=== PATIENT | male | born 1940 | race Native Hawaiian/Other Pacific Islander ===

== ENCOUNTER 2018-02-07 10:29 | Inpatient (IN) | payer MEDICARE, OTHER ==
[2018-02-07] MEDS ORDERED: LOPRESSOR IV ONE ×2 (10:46→10:48)
[2018-02-07] MEDS ORDERED: ASPIRIN PO ONE (10:47)
--- NOTE | 2018-02-07 10:50 | Emergency Department Report ---
ED Chest Pain HPI - General Stated Complaint: CHEST PAIN Time Seen by Provider: 02/07/18 10:30 Source: patient, family, EMS Mode of arrival: Stretcher Limitations: No Limitations - History of Present Illness Initial Comments: Patient is a 77-year-old male that presents emergency room with complaints of chest pain or shortness of breath. Patient states his chest pain and shortness of breath started 9:00 this morning. Patient states the chest pain is a 6 out of 10. Patient states it is nonradiating. Patient states chest pain is better with rest and worse with exertion. MD Complaint: chest pain -: Sudden Onset: during rest Pain Location: substernal, left chest Pain Radiation: none Severity: moderate Severity scale (0 -10): 5 Quality: pressure Consistency: constant Improves With: rest Worsens With: exertion re: dyspnea. denies: nausea, vomting, diaphoresis, sense of impending doom Other Symptoms: palpitations. denies: cough, fever, syncope, rash, acid taste in mouth, leg swelling, burping Treatments Prior to Arrival: oxygen Aspirin use within the Past 7 Days: (1) Yes - Related Data On Oral Contraceptives: No Home Medications Medication Instructions Recorded Confirmed Last Taken Aspirin [Adult Aspirin] 81 mg PO DAILY 02/07/18 02/07/18 Unknown Atorvastatin Calcium [Lipitor] 40 mg PO HS 02/07/18 02/07/18 Unknown Finasteride [Proscar] 5 mg PO QAM 02/07/18 02/07/18 Unknown Furosemide [Lasix TAB] 40 mg PO QDAY 02/07/18 02/07/18 Unknown Metoprolol Succinate [Toprol Xl] 100 mg PO BID 02/07/18 02/07/18 Unknown Nitroglycerin [Nitrostat] 0.4 mg SL Q5M PRN 02/07/18 02/07/18 Unknown Potassium Chloride [Klor-Con 10] 10 meq PO DAILY 02/07/18 02/07/18 Unknown Tamsulosin HCl [Flomax] 0.4 mg PO QPM 02/07/18 02/07/18 Unknown Allergies Allergy/AdvReac Type Severity Reaction Status Date / Time No Known Allergies Allergy Verified 02/07/18 10:58 Heart Score - HEART Score History: Moderately suspicious EKG: Significant ST-depression Age: > 65 Risk factors: 1-2 risk factors Troponin: < normal limit HEART Score: 6 ED Review of Systems ROS: Stated complaint: CHEST PAIN Other details as noted in HPI Constitutional: denies: chills, fever Eyes: denies: eye pain, eye discharge, vision change ENT: denies: ear pain, throat pain Respiratory: shortness of breath, SOB with exertion, SOB at rest. denies: cough, wheezing Cardiovascular: chest pain. denies: palpitations Endocrine: no symptoms reported Gastrointestinal: denies: abdominal pain, nausea, diarrhea Genitourinary: denies: urgency, dysuria Musculoskeletal: denies: back pain, joint swelling, arthralgia Skin: denies: rash, lesions Neurological: denies: headache, weakness, paresthesias Psychiatric: denies: anxiety, depression Hematological/Lymphatic: denies: easy bleeding, easy bruising ED Past Medical Hx - Past Medical History Previous Medical History?: Yes Hx Hypertension: Yes Hx Congestive Heart Failure: Yes Hx Renal Disease: Yes Additional medical history: cad with stent - Surgical History Past Surgical History?: Yes Additional Surgical History: aicd/pacer - Family History Family history: no significant - Social History Smoking Status: Never Smoker Substance Use Type: None - Medications Home Medications: Home Medications Medication Instructions Recorded Confirmed Last Taken Type Aspirin [Adult Aspirin] 81 mg PO DAILY 02/07/18 02/07/18 Unknown History Atorvastatin Calcium [Lipitor] 40 mg PO HS 02/07/18 02/07/18 Unknown History Finasteride [Proscar] 5 mg PO QAM 02/07/18 02/07/18 Unknown History Furosemide [Lasix TAB] 40 mg PO QDAY 02/07/18 02/07/18 Unknown History Metoprolol Succinate [Toprol Xl] 100 mg PO BID 02/07/18 02/07/18 Unknown History Nitroglycerin [Nitrostat] 0.4 mg SL Q5M PRN 02/07/18 02/07/18 Unknown History Potassium Chloride [Klor-Con 10] 10 meq PO DAILY 02/07/18 02/07/18 Unknown History Tamsulosin HCl [Flomax] 0.4 mg PO QPM 02/07/18 02/07/18 Unknown History ED Physical Exam - General Limitations: No Limitations General appearance: alert, in no apparent distress - Head Head exam: Present: atraumatic, normocephalic - Eye Eye exam: Present: normal appearance, PERRL Pupils: Present: normal accommodation - ENT ENT exam: Present: mucous membranes dry - Neck Neck exam: Present: normal inspection - Respiratory Respiratory exam: Present: normal lung sounds bilaterally. Absent: respiratory distress - Cardiovascular Cardiovascular Exam: Present: normal rhythm, tachycardia, irregular rhythm. Absent: systolic murmur, diastolic murmur, rubs, gallop - GI/Abdominal GI/Abdominal exam: Present: soft, normal bowel sounds - Rectal Rectal exam: Present: deferred - Extremities Exam Extremities exam: Present: normal inspection - Back Exam Back exam: Present: normal inspection - Neurological Exam Neurological exam: Present: alert, oriented X3 - Psychiatric Psychiatric exam: Present: normal affect, normal mood - Skin Skin exam: Present: warm, dry, intact, normal color. Absent: rash ED Course Vital Signs 02/07/18 02/07/18 02/07/18 10:29 10:57 12:32 Temperature 97.4 F L Pulse Rate 138 H 150 H 140 H Respiratory 22 Rate Blood Pressure 135/84 140/79 Blood Pressure [Right] O2 Sat by Pulse 100 Oximetry 02/07/18 14:17 Temperature 98 F Pulse Rate 83 Respiratory 21 Rate Blood Pressure Blood Pressure 104/77 [Right] O2 Sat by Pulse 100 Oximetry - Reevaluation(s) Reevaluation #1: Evaluated immediately upon arrival by EMS. Patient found to be A. fib RVR. Patient complaining of chest pain shortness of breath. Patient states he ran out of his metoprolol. Patient will be given 5 mg Lopressor. 02/07/18 10:30 Heart rate is improving after Lopressor 02/07/18 10:56 Symptoms have improved. Heart rate has improved 02/07/18 11:38 Heart rate has slowly increased and patient will be given a dose of Cardizem. Discussed all results and plan of care with patient. Patient agrees with plan of care and admission. Patient was admitted to the hospitalist service. 02/07/18 12:24 Heart rate has improved. 02/07/18 13:30 - Consultations Consultation #1: Dr. Mathur consulted for admission. Hospitalist to admit patient 02/07/18 12:00 TR score - Tr Score Age > 65: (1) Yes Aspirin use within the Past 7 Days: (1) Yes 3 or more CAD Risk Factors: (1) Yes 2 or more Angina events in past 24 hrs: (0) No Known CAD with more than 50% Stenosis: (0) No Elevated Cardiac Markers: (0) No ST Deviation Greater than 0.5mm: (0) No TR Score: 3 ED Medical Decision Making - Lab Data Result diagrams: 02/07/18 11:05 02/07/18 11:07 - EKG Data -: EKG Interpreted by Tx EKG shows normal: axis, intervals, QRS complexes, ST-T waves Rate: tachycardia - EKG Data Interpretation: other (afib) - Radiology Data Radiology results: report reviewed AP CHEST :02/07/18 11:18 CLINICAL: Chest pain. COMPARISON:None. FINDINGS: Cardiomegaly with an AICD lead in the heart. Normal pulmonary vessels.Mild right basal patchy opacities. The lungs are otherwise clear. Mild subsegmental atelectasis in the left midlung. The bones and soft tissues are normal. IMPRESSION: Cardiomegaly but no CHF.Possible early right basal pneumonia. Transcribed By: REF Dictated By: MILLIE GARZA MD Electronically Authenticated By: MILLIE GARZA MD Signed Date/Time: 02/07/18 1147 - Medical Decision Making Patient is a 77-year-old male presents emergency with chest pain and shortness of breath. Patient also complained of palpitations. Patient found to be in A. fib RVR. Patient given Lopressor and heart rate responded well. Patient's heart rate slowly increased and patient was given a dose of Cardizem. Patient's labs unremarkable except for her anemia and elevated BNP and abnormal kidney function. Patient was admitted to the hospital service for further evaluation treatment. - Differential Diagnosis cp. sob. bnp. acs. afib rvr. chf Critical Care Time: Yes Critical care attestation.: If time is entered above; I have spent that time in minutes in the direct care of this critically ill patient, excluding procedure time. Critical Care Time: 45 minutes ED Disposition Clinical Impression: SOB (shortness of breath), Atrial fibrillation with RVR Chest pain Qualifiers: Chest pain type: unspecified Qualified Code(s): R07.9 - Chest pain, unspecified CHF exacerbation Qualifiers: Heart failure type: unspecified Qualified Code(s): I50.9 - Heart failure, unspecified Anemia Qualifiers: Anemia type: unspecified type Qualified Code(s): D64.9 - Anemia, unspecified CKD (chronic kidney disease) Qualifiers: Chronic kidney disease stage: unspecified stage Qualified Code(s): N18.9 - Chronic kidney disease, unspecified Disposition: DC-09 OP ADMIT IP TO THIS HOSP Is pt being admited?: Yes Does the pt Need Aspirin: No Condition: Critical Time of Disposition: 12:03
[2018-02-07 11:15] LABS: Hematocrit 24.6 % (35.5-45.6); Hemoglobin 7.4 gm/dl (11.8-15.2); Red Blood Count 3.29 M/mm3 (3.65-5.03)
[2018-02-07 11:16] LABS: Basophils % (Auto) 0.5 % (0.0-1.8); Eosinophils % (Auto) 0.9 % (0.0-4.3); Lymphocytes # (Auto) 1.3 K/mm3 (1.2-5.4); Lymphocytes % (Auto) 24.4 % (13.4-35.0); Mean Corpuscular HGB Conc 30 % (32-34); Mean Corpuscular Volume 75 fl (84-94); Monocytes # (Auto) 0.4 K/mm3 (0.0-0.8); Monocytes % (Auto) 6.8 % (0.0-7.3); Platelet Count 194 K/mm3 (140-440)
[2018-02-07 11:31] LABS: Albumin 3.5 g/dL (3.9-5); Calcium 8.6 mg/dL (8.4-10.2)
--- NOTE | 2018-02-07 11:53 | XRay Report ---
AP CHEST :02/07/18 11:18 CLINICAL: Chest pain. COMPARISON:None. FINDINGS: Cardiomegaly with an AICD lead in the heart. Normal pulmonary vessels.Mild right basal patchy opacities. The lungs are otherwise clear. Mild subsegmental atelectasis in the left midlung. The bones and soft tissues are normal. IMPRESSION: Cardiomegaly but no CHF.Possible early right basal pneumonia.
[2018-02-07] MEDS ORDERED: CARDIZEM IV ONE (12:23)
--- NOTE | 2018-02-07 13:00 | History and Physical Report ---
History of Present Illness Chief complaint: My chest hurts, and i cant breathe History of present illness: 77 YO Male with HTN, HLD, BPH,CHF, CAD S/P Stent placement presents to ED for evaluation. Pt states that he has experienced pain in his chest and difficulty breathing over the past 1 day with worsening symptoms over the past 10 hours. Pt states that pain is 5/10, substernal, crushing in nature, worsened with e xertion, relieved with rest, associated with palpitations, nonradiating. Pt acknowledges decreased exercise tolerance, as well as dypsnea on exertion. Pt seen and evaluated in ED and found to have symptoms consistent with ACS, ARF, as well as Diastolic Heart Failure. Pt also found tohave Atrial Fib with RVR. Pt treated with antiarrythmic therapy resulting in rate control. Pt denies fever, chills, NVD, trauma, prolonged travel/immobility, hemoptysis, skin rash, or recent ill contacts. Pt admitted to telemetry, Cardiology consulted in ED. Past History Past Medical History: CAD, heart failure, hypertension, hyperlipidemia, other (BPH) Past Surgical History: Other (Stent placement, Pacemaker placement;) Social history: , lives with family. denies: smoking, alcohol abuse, prescription drug abuse Family history: CAD, hypertension Medications and Allergies Allergies Allergy/AdvReac Type Severity Reaction Status Date / Time No Known Allergies Allergy Verified 02/07/18 10:58 Home Medications Medication Instructions Recorded Confirmed Last Taken Type Aspirin [Adult Aspirin] 81 mg PO DAILY 02/07/18 02/07/18 Unknown History Atorvastatin Calcium [Lipitor] 40 mg PO HS 02/07/18 02/07/18 Unknown History Finasteride [Proscar] 5 mg PO QAM 02/07/18 02/07/18 Unknown History Furosemide [Lasix TAB] 40 mg PO QDAY 02/07/18 02/07/18 Unknown History Metoprolol Succinate [Toprol Xl] 100 mg PO BID 02/07/18 02/07/18 Unknown History Nitroglycerin [Nitrostat] 0.4 mg SL Q5M PRN 02/07/18 02/07/18 Unknown History Potassium Chloride [Klor-Con 10] 10 meq PO DAILY 02/07/18 02/07/18 Unknown History Tamsulosin HCl [Flomax] 0.4 mg PO QPM 02/07/18 02/07/18 Unknown History Review of Systems Constitutional: no weight loss, no weight gain, no fever, no chills Ears, nose, mouth and throat: no ear pain, no ear discharge, no tinnitis, no decreased hearing, no nose pain Cardiovascular: chest pain, shortness of breath, dyspnea on exertion, decreased exercise tolerance Respiratory: no cough, no cough with sputum, no excessive sputum, no hemoptysis, no shortness of breath Gastrointestinal: no nausea, no vomiting, no diarrhea, no constipation, no change in bowel habits Genitourinary Male: no hematuria, no flank pain, no discharge, no urinary frequency, no urinary hesitancy Rectal: no pain, no incontinence, no bleeding Musculoskeletal: no neck stiffness, no neck pain, no shooting arm pain, no arm numbness/tingling, no low back pain, no shooting leg pain Integumentary: no rash, no pruritis, no wounds, no jaundice Neurological: no head injury, no transient paralysis, no paralysis, no weakness, no numbness, no seizures, no syncope Psychiatric: no anxiety, no memory loss, no sleep disturbances, no hypersomnia Endocrine: no cold intolerance, no heat intolerance, no excessive thirst, no polydipsia, no nocturia Hematologic/Lymphatic: no easy bruising, no easy bleeding, no lymphadenopathy, no lymphedema Allergic/Immunologic: no urticaria, no allergic rhinitis, no persistent infections, no anaphylaxis Exam - Constitutional Vitals: Temp Pulse Resp BP Pulse Ox 97.4 F L 140 H 22 140/79 100 02/07/18 10:29 02/07/18 12:32 02/07/18 10:29 02/07/18 12:32 02/07/18 10:29 General appearance: Present: mild distress - EENT Eyes: Present: PERRL ENT: hearing intact, clear oral mucosa - Neck Neck: Present: supple, normal ROM - Respiratory Respiratory effort: normal Respiratory: bilateral: CTA - Cardiovascular Rhythm: irregularly irregular Heart Sounds: Present: S1 & S2. Absent: rub, click - Extremities Extremities: pulses symmetrical, No edema Peripheral Pulses: within normal limits - Abdominal General gastrointestinal: Present: soft, non-tender, non-distended, normal bowel sounds Male genitourinary: Present: normal - Integumentary Integumentary: Present: clear, warm, dry - Musculoskeletal Musculoskeletal: gait normal, strength equal bilaterally - Psychiatric Psychiatric: appropriate mood/affect, intact judgment & insight - Neurologic Neurologic: CNII-XII intact, moves all extremities Results - Labs CBC & Chem 7: 02/07/18 11:05 02/07/18 11:07 Labs: Abnormal lab results 02/07/18 02/07/18 02/07/18 Range/Units 11:05 11:07 11:07 RBC 3.29 L (3.65-5.03) M/mm3 Hgb 7.4 L (11.8-15.2) gm/dl Hct 24.6 L (35.5-45.6) % MCV 75 L (84-94) fl MCH 23 L (28-32) pg MCHC 30 L (32-34) % RDW 19.0 H (13.2-15.2) % Sodium 133 L (137-145) mmol/L Carbon Dioxide 13 L (22-30) mmol/L BUN 32 H (9-20) mg/dL Creatinine 1.6 H (0.8-1.5) mg/dL Glucose 146 H (75-100) mg/dL Alkaline Phosphatase 133 H (35-129) units/L NT-Pro-B Natriuret Pep 7151 H (0-900) pg/mL Albumin 3.5 L (3.9-5) g/dL Assessment and Plan - Patient Problems (1) CHF exacerbation Current Visit: Yes Status: Acute Qualifiers: Heart failure type: systolic Qualified Code(s): I50.23 - Acute on chronic systolic (congestive) heart failure Plan to address problem: Admit to telemetry, Strict I/O, Monitor UOP q shift, daily weight, chest x ray, diuresis, afterload reduction, cardiology consulted, Echo (2) ARF (acute renal failure) with tubular necrosis Current Visit: Yes Status: Acute Plan to address problem: IVF resuscitation, monitor uop q shift, monitor serum creatnine (3) Anemia Current Visit: Yes Status: Acute Qualifiers: Anemia type: unspecified type Qualified Code(s): D64.9 - Anemia, unspecified Plan to address problem: PRBC transfusion, repeat cbc (4) Atrial fibrillation with RVR Current Visit: Yes Status: Acute Plan to address problem: Admit to telemetry, cardiology consulted, thyroid panel, rate control, supportive care, (5) ACS (acute coronary syndrome) Current Visit: Yes Status: Acute Plan to address problem: serial cardiac enzymes, ekg, telemetry, cardiology consulted in ED, D dimer, (6) DVT prophylaxis Current Visit: Yes Status: Acute Plan to address problem: scd to ble while in bed
[2018-02-07] MEDS ORDERED: NACL 0.9% 500 ML 500 ML IV ONE (13:03)
[2018-02-07] MEDS ORDERED: PROVENTIL IH PRN (13:10)
[2018-02-07] MEDS ORDERED: ZOFRAN IV PRN (13:10)
[2018-02-07] MEDS ORDERED: SODIUM CHLORIDE FLUSH SYRINGE 10 ML IV PRN ×2 (13:10→13:12)
[2018-02-07] MEDS ORDERED: NITROSTAT SL PRN (13:11)
[2018-02-07 14:19] LABS: Chol/HDL Ratio 2.82 %
[2018-02-07] MEDS ORDERED: LASIX ONE (20:26)
[2018-02-07] MEDS: LASIX IV SCH (20:30)
[2018-02-07] MEDS: FLOMAX PO SCH (20:31)
[2018-02-07] MEDS: TOPROL XL PO SCH (21:55)
[2018-02-07] MEDS: SODIUM CHLORIDE FLUSH SYRINGE 10 ML IV SCH (21:56)
[2018-02-08] MEDS: LASIX IV SCH ×2 (06:40→18:26)
[2018-02-08 08:11] LABS: Free T4 (Free Thyroxine) 1.28 ng/dL (0.76-1.46)
[2018-02-08] MEDS ORDERED: NON-FORMULARY (Potassium Chloride [Klor-Con 10] 10 MEQ) PO SCH (10:00)
--- NOTE | 2018-02-08 10:03 | Progress Note ---
Assessment and Plan Assessment and plan: Patient is a 77 you Pakistani speaking man with a history of HTN, HLD, BPH, CHF, Afib with PPM or AICD (Rameshtaisreal Zepeda) and CAD S/P Stent placement who presented to [facility] ED with CP and SOB. He was found to be in afib with RVR, most likely because he ran out of his Metoprolol. He was given IV lopressor which helped but then RVR re-occured and he was given IV Cardizem. Patient is poor historian even with Language Line. * pCXR IMPRESSION: Cardiomegaly but no CHF.Possible early right basal pneumonia. * Hgb 7.4 (MCV 75) * INR 1.74, D-Dimer 605.22 * Cr 1.6 (no baseline, this is his only visit in EMR) * BG 146 (not known to be diabetic) * Initially Troponin 0.025 then 4.390, followed by 3.650 * proBNP 7151 -NSTEMI: already on bb/statin/asa, started IV heparin, closely monitor the anemia, Cardiology following, they are awaiting records from [facility] prior to ischemic evaluation, Dr. Reyes says there is no plans for cardiac cath at the moment. Cr. 1.6 and hemoglobin is low, he wants records from [facility] first. I called RN to have patient sign a release for records. -Acute on Chronic heart failure: Admit to telemetry, Strict I/O, Monitor UOP q shift, daily weight, chest x ray, diuresis, afterload reduction, cardiology consulted, Echo pending -ARF (acute renal failure) with tubular necrosis: IVF resuscitation, monitor uop q shift, monitor serum creatinine, ordered renal u/s -Anemia, microcytic s/p 1 unit prbc, no signs of bleeding: get FOBT, monitor CBC closely, check iron study, thyroid levels are fine, microcytosis indicates this maybe chronic -Atrial fibrillation with RVR: Consulted Cardiology, -Elevated D-Dimer: on iv heparin already but needs further evaluation with V/Q scan instead of CTA chest because cr 1.6, d/w Dr. Reyes, ok for v/q -Possible RLL pneumonia vs interstitial edema: will get 2v CXR: empiric treat with iv rocephin -Elevated INR: I do not know if patient was on Coumadin. MAGGY Doyle will call his phamacy to see if he was on Coumadin/warfarin -Hyperglycemia, not known to be diabetic: check a1c DVT prophylaxis: iv heparin drip full code CCT 35 minutes History Interval history: [employer] Language Line used but I was on hold for >2 minutes waiting on a [employer] Waitress/Waiter Patient was seen and examined. Follow-up on current diagnosis sob and chest pain which has resolved. Overnight uneventful. Patient denies any nausea/vomiting or severe headaches. Imaging, nursing note, chart, labs and old chart reviewed. Discussed with patient. at bedside, doesn't speak Spanish Hospitalist Physical - Physical exam Narrative exam: Gen: thin NAD, Awake, Alert, Orientated HEENT: NCAT, EOMI, PERRL, OP Clear Neck: supple, no adenopathy, no thyromegaly, no JVD CVS/Heart: irregular irregular, normal S1S2, pulses present bilaterally Chest/Lungs: diminished bs right base >left base, Symmetrical chest expansion, good air entry bilaterally, right sided PPM GI/Abdomen: soft, NTND, good bowel sounds, no guarding or rebound /Bladder: no suprapubic tenderness, no CVA or paraspinal tenderness Extermity/Skin: no c/c/e, no obvious rash MSK: FROM x 4 Neuro: CN 2-12 grossly intact, no new focal deficits Psych: calm - Constitutional Vitals: Temp Pulse Resp BP Pulse Ox 98.1 F 87 18 108/61 97 02/08/18 07:58 02/08/18 07:58 02/08/18 07:58 02/08/18 07:58 02/08/18 07:58 General appearance: Absent: mild distress Results - Labs CBC & Chem 7: 02/08/18 10:43 02/07/18 11:07 Labs: Laboratory Last Values WBC 5.5 K/mm3 (4.5-11.0) 02/07/18 11:05 RBC 3.29 M/mm3 (3.65-5.03) L 02/07/18 11:05 Hgb 7.4 gm/dl (11.8-15.2) L 02/07/18 11:05 Hct 24.6 % (35.5-45.6) L 02/07/18 11:05 MCV 75 fl (84-94) L 02/07/18 11:05 MCH 23 pg (28-32) L 02/07/18 11:05 MCHC 30 % (32-34) L 02/07/18 11:05 RDW 19.0 % (13.2-15.2) H 02/07/18 11:05 Plt Count 194 K/mm3 (140-440) 02/07/18 11:05 Lymph % (Auto) 24.4 % (13.4-35.0) 02/07/18 11:05 Swift % (Auto) 6.8 % (0.0-7.3) 02/07/18 11:05 Eos % (Auto) 0.9 % (0.0-4.3) 02/07/18 11:05 Baso % (Auto) 0.5 % (0.0-1.8) 02/07/18 11:05 Lymph # 1.3 K/mm3 (1.2-5.4) 02/07/18 11:05 Swift # 0.4 K/mm3 (0.0-0.8) 02/07/18 11:05 Eos # 0.0 K/mm3 (0.0-0.4) 02/07/18 11:05 Baso # 0.0 K/mm3 (0.0-0.1) 02/07/18 11:05 Seg Neutrophils % 67.4 % (40.0-70.0) 02/07/18 11:05 Seg Neutrophils # 3.7 K/mm3 (1.8-7.7) 02/07/18 11:05 D-Dimer 605.22 ng/mlDDU (0-234) H 02/07/18 13:09 Sodium 133 mmol/L (137-145) L 02/07/18 11:07 Potassium 3.8 mmol/L (3.6-5.0) 02/07/18 11:07 Chloride 100.7 mmol/L (98-107) 02/07/18 11:07 Carbon Dioxide 13 mmol/L (22-30) L 02/07/18 11:07 Anion Gap 23 mmol/L 02/07/18 11:07 BUN 32 mg/dL (9-20) H 02/07/18 11:07 Creatinine 1.6 mg/dL (0.8-1.5) H 02/07/18 11:07 Estimated GFR 42 ml/min 02/07/18 11:07 BUN/Creatinine Ratio 20 % 02/07/18 11:07 Glucose 146 mg/dL (75-100) H 02/07/18 11:07 Calcium 8.6 mg/dL (8.4-10.2) 02/07/18 11:07 Total Bilirubin 0.60 mg/dL (0.1-1.2) 02/07/18 11:07 AST 22 units/L (5-40) 02/07/18 11:07 ALT 7 units/L (7-56) 02/07/18 11:07 Alkaline Phosphatase 133 units/L (35-129) H 02/07/18 11:07 Troponin T 4.390 ng/mL (0.00-0.029) H* D 02/07/18 19:11 NT-Pro-B Natriuret Pep 7151 pg/mL (0-900) H 02/07/18 11:07 Total Protein 7.6 g/dL (6.3-8.2) 02/07/18 11:07 Albumin 3.5 g/dL (3.9-5) L 02/07/18 11:07 Albumin/Globulin Ratio 0.9 % 02/07/18 11:07 Triglycerides 79 mg/dL (2-149) 02/07/18 11:07 Cholesterol 99 mg/dL (50-199) 02/07/18 11:07 LDL Cholesterol Direct 61 mg/dL (50-130) 02/07/18 11:07 HDL Cholesterol 35 mg/dL (40-59) L 02/07/18 11:07 Cholesterol/HDL Ratio 2.82 % 02/07/18 11:07 TSH 2.650 mlU/mL (0.270-4.200) 02/08/18 06:44 Free T4 1.28 ng/dL (0.76-1.46) 02/08/18 06:44 Blood Type A POSITIVE 02/07/18 12:03 Antibody Screen Negative 02/07/18 12:03 Crossmatch See Detail 02/07/18 12:03
[2018-02-08 10:58] LABS: Hematocrit 33.1 % (35.5-45.6); Hemoglobin 10.4 gm/dl (11.8-15.2)
[2018-02-08] MEDS ORDERED: HEPARIN/ 0.45% NACL-25,000 UNIT/500 ML 25,000 UNIT/500 ML BAG IV SCH (11:00)
[2018-02-08 11:10] LABS: INR 1.74 (0.87-1.13)
[2018-02-08 11:11] LABS: Partial Thromboplastin Time 32.2 Sec. (24.2-36.6)
[2018-02-08] MEDS: K-DUR PO SCH (11:17)
[2018-02-08] MEDS: SODIUM CHLORIDE FLUSH SYRINGE 10 ML IV SCH ×2 (11:17→21:27)
[2018-02-08] MEDS: PROSCAR PO SCH (11:17)
[2018-02-08] MEDS: HALFPRIN EC PO SCH (11:17)
[2018-02-08] MEDS: TOPROL XL PO SCH ×2 (11:18→21:11)
[2018-02-08 12:31] LABS: Creatine Kinase MB 22.5 ng/mL (0.0-4.0)
--- NOTE | 2018-02-08 16:06 | Consultation ---
Addendum entered and electronically signed by JUANJO PÉREZ MD 02/08/18 16:48: We note the elevation of the cardiac isoenzymes, which could represent an ischem ic event, but could also represent the rapid tachycardia of the presenting atrial fibrillation. We will obtain the patient's records from [facility], to determine the etiology of his cardiomyopathy, and may guide further ischemic workup. It would prudent to use IV anticoagulation judiciously given the patient's presentation with anemia requiring blood transfusion. Addendum entered and electronically signed by JUANJO PÉREZ MD 02/08/18 16:34: The patient is a 77-year-old man who speaks little Algerian, and is a very poor historian. He was brought to the emergency room by the EMS, with complaints of chest pressure, palpitations and shortness of breath. supplier diversity director found him with a rapid atrial fibrillation. In addition, on presentation to the hospital he was found to be anemic with a hematocrit of 24, and he was given a blood tr ansfusion. The patient is unable to articulate his prior cardiac history, or give a proper report of his home medications. His INR was 1.74 on presentation, but we are on able to confirm that he is on warfarin. In addition, we cannot confirm the chronicity of his atrial fibrillation, and possible medical therapy targeted to his atrial fibrillation. On review of his chest x-ray, there is massive cardiomegaly, mild interstitial edema with decompensated heart failure. Also most significantly, there is an in situ cardiac defibrillator. Recommendations: Patient is a poor historian, but evidence on studies show an underlying cardiomyopathy, indwelling cardiac defibrillator, and probable long-standing atrial fibrillation. On the chest x-ray there is evidence of interstitial edema or decompensated heart failure. In addition to atrial fibrillation rate control, we will treat heart failure with optimal diuretics, afterload agents, and beta blockers once heart failure is compensated. With regards to oral anticoagulation for his atrial fibrillation, resumption of anticoagulation will depend on risk assessment with respect to his presentation anemia. We will request his medical records from [facility]. Original Note: History of Present Illness Consult date: 02/08/18 Consult reason: atrial fibrillation, congestive heart failure History of present illness: This is a 77 year old male who speaks no Algerian. He was brought in with rapid atrial fibrillation. It is reported the patient ran out of his metoprolol. He was treated with intravenous Diltiazem but remains in atrial fibrillation. Rate is now controlled. Family member at bedside, used for translation, reports the patient has a history of atrial fibrillation and follows with a potato peeler at [facility]. It is unclear at this time if the patient is on oral anticoagulation. He has an INR of 1.74. TSH is normal. In addition, patient noted with multiple metabolic abnormalities that includes severe anemia, hematocrit of 24.6 and acute renal failure with a creatinine of 1.6. He has elevated cardiac enzymes suggestive of NSTEMI: CK/MB 22.5 with a relative index at 5.3. Troponin at 3.6. Past History Past Medical History: CAD, heart failure, hypertension, hyperlipidemia, other (BPH) Past Surgical History: Other (Stent placement, Pacemaker placement;) Social history: , lives with family. denies: smoking, alcohol abuse, prescription drug abuse Family history: CAD, hypertension Medications and Allergies Allergies Allergy/AdvReac Type Severity Reaction Status Date / Time No Known Allergies Allergy Verified 02/07/18 10:58 Home Medications Medication Instructions Recorded Confirmed Last Taken Type Aspirin [Adult Aspirin] 81 mg PO DAILY 02/07/18 02/07/18 Unknown History Atorvastatin Calcium [Lipitor] 40 mg PO HS 02/07/18 02/07/18 Unknown History Finasteride [Proscar] 5 mg PO QAM 02/07/18 02/07/18 Unknown History Furosemide [Lasix TAB] 40 mg PO QDAY 02/07/18 02/07/18 Unknown History Metoprolol Succinate [Toprol Xl] 100 mg PO BID 02/07/18 02/07/18 Unknown History Nitroglycerin [Nitrostat] 0.4 mg SL Q5M PRN 02/07/18 02/07/18 Unknown History Potassium Chloride [Klor-Con 10] 10 meq PO DAILY 02/07/18 02/07/18 Unknown History Tamsulosin HCl [Flomax] 0.4 mg PO QPM 02/07/18 02/07/18 Unknown History Active Meds: Active Medications Acetaminophen (Tylenol) 650 mg PO Q4H PRN PRN Reason: Pain MILD(1-3)/Fever >100.5/COLÓN Albuterol (Proventil) 2.5 mg IH Q4HRT PRN PRN Reason: Shortness Of Breath Aspirin (Halfprin Ec) 81 mg PO DAILY [facility] Last Admin: 02/08/18 11:17 Dose: Not Given Documented by: Atorvastatin Calcium (Lipitor) 40 mg PO HS [facility] Last Admin: 02/07/18 21:55 Dose: 40 mg Documented by: Finasteride (Proscar) 5 mg PO QAM [facility] Last Admin: 02/08/18 11:17 Dose: Not Given Documented by: Furosemide (Lasix) 20 mg IV BID@0600,1800 [facility] Last Admin: 02/08/18 06:40 Dose: 20 mg Documented by: Heparin Sodium/Sodium Chloride (Heparin/ 0.45% Nacl-25,000 Unit/500 Ml) 25,000 unit in 500 mls @ 18 mls/hr IV TITRATE [facility]; Protocol Last Admin: 02/08/18 12:37 Dose: 900 units/hr, 18 mls/hr Documented by: Metoprolol Succinate (Toprol Xl) 100 mg PO BID [facility] Last Admin: 02/08/18 11:18 Dose: Not Given Documented by: Nitroglycerin (Nitrostat) 0.4 mg SL Q5M PRN PRN Reason: Chest Pain Ondansetron HCl (Zofran) 4 mg IV Q8H PRN PRN Reason: Nausea And Vomiting Potassium Chloride (K-Dur) 10 meq PO QDAY [facility] Last Admin: 02/08/18 11:17 Dose: Not Given Documented by: Sodium Chloride (Sodium Chloride Flush Syringe 10 Ml) 10 ml IV BID [facility] Last Admin: 02/08/18 11:17 Dose: Not Given Documented by: Sodium Chloride (Sodium Chloride Flush Syringe 10 Ml) 10 ml IV PRN PRN PRN Reason: LINE FLUSH Sodium Chloride (Sodium Chloride Flush Syringe 10 Ml) 10 ml IV PRN PRN PRN Reason: LINE FLUSH Tamsulosin HCl (Flomax) 0.4 mg PO QPM [facility] Last Admin: 02/07/18 20:31 Dose: 0.4 mg Documented by: Physical Examination Vital Signs Temp Pulse Resp BP Pulse Ox 97.4 F L 138 H 22 135/84 100 02/07/18 10:29 02/07/18 10:29 02/07/18 10:29 02/07/18 10:29 02/07/18 10:29 Results 02/08/18 10:43 02/07/18 11:07 Cardiac Enzymes 02/08/18 Range/Units 11:37 CK-MB (CK-2) 22.5 H (0.0-4.0) ng/mL Coagulation 02/08/18 Range/Units 10:43 PT 20.8 H (12.2-14.9) Sec. INR 1.74 H (0.87-1.13) APTT 32.2 (24.2-36.6) Sec. CBC 02/08/18 Range/Units 10:43 Hgb 10.4 L D (11.8-15.2) gm/dl Hct 33.1 L D (35.5-45.6) % Plt Count 188 (140-440) K/mm3
[2018-02-08] MEDS: COZAAR PO SCH (18:25)
[2018-02-08] MEDS: FLOMAX PO SCH (18:25)
[2018-02-08] MEDS: ZITHROMAX 500 MG in NACL 0.9% 250ML 250 ML IV SCH (19:18)
[2018-02-08 19:19] LABS: Creatine Kinase MB 15.1 ng/mL (0.0-4.0)
[2018-02-08 19:22] LABS: Iron 34 ug/dL (49-181); Total Iron Binding Capacity 406 mcg/dL (250-450)
[2018-02-08] MEDS: ROCEPHIN/NS 1 GM/50 ML 1 GM/50 ML BAG IV SCH (20:46)
[2018-02-09 05:22] LABS: Hematocrit 31.7 % (35.5-45.6); Hemoglobin 10.2 gm/dl (11.8-15.2); Mean Corpuscular HGB Conc 32 % (32-34); Mean Corpuscular Volume 77 fl (84-94); Platelet Count 178 K/mm3 (140-440); Red Blood Count 4.13 M/mm3 (3.65-5.03)
[2018-02-09 05:24] LABS: Red Cell Distribution Width 22.6 % (13.2-15.2)
[2018-02-09 05:45] LABS: Calcium 8.7 mg/dL (8.4-10.2)
--- NOTE | 2018-02-09 10:25 | Nuclear Medicine Report ---
LUNG SCAN, VENTILATION AND PERFUSION: History: Pulmonary embolus, chest pain, shortness of breath. Technique: 5mci of Tc99m MAA was infused for the perfusion images. 15mci XE 133 gas was inhaled for the ventilatory images. Correlation is made with a chest x-ray dated 02/09/18. Findings: Inhalation of Xenon gas demonstrates a normal distribution of the activity throughout both lungs. The wash out phases show no focal retention of activity. After injection of Technetium 99m macroaggregated albumin gamma camera imaging of the lungs in multiple projections demonstrates normal pulmonary contours with a homogeneous distribution of activity. No focal areas of perfusion deficiency are identified. IMPRESSION: Low probability for pulmonary embolus.
--- NOTE | 2018-02-09 10:26 | XRay Report ---
AP CHEST: HISTORY: chest pain Mild cardiomegaly is noted. The pulmonary vessels are borderline. No evidence for infiltrate, pleural effusion or pneumothorax. Single lead cardiac device remains in good position. IMPRESSION: Mild cardiomegaly. Lungs clear.
[2018-02-09] MEDS: TOPROL XL PO SCH ×2 (11:27→11:52)
[2018-02-09] MEDS: PROSCAR PO SCH (11:27)
[2018-02-09] MEDS: HALFPRIN EC PO SCH (11:27)
[2018-02-09] MEDS: COZAAR PO SCH (11:28)
[2018-02-09] MEDS: LASIX IV SCH (11:28)
[2018-02-09] MEDS: ROCEPHIN/NS 1 GM/50 ML 1 GM/50 ML BAG IV SCH (11:28)
[2018-02-09] MEDS: K-DUR PO SCH (11:28)
[2018-02-09] MEDS: SODIUM CHLORIDE FLUSH SYRINGE 10 ML IV SCH ×2 (11:29→21:57)
--- NOTE | 2018-02-09 13:18 | Progress Note ---
Assessment and Plan Persistent atrial fibrillation, unknown chronicity rate controlled INR 1.74 on presentation. Unable to confirm if he is on warfarin. Anemia s/p blood transfusion Decompensated heart failure, diastolic EF 55% by echocardiogram Presence of AICD Awaiting the patient's records from [facility], to determine the etiology of his cardiomyopathy and guide of further ischemic workup. Use IV anticoagulation judiciously given the patient's presentation with anemia requiring blood transfusion. Subjective Date of service: 02/09/18 Interval history: Patient does not speak Luxembourgish. Awaiting cardiac records for [facility] for review. Stable Afib on tele. Objective Vital Signs Temp Pulse Resp BP Pulse Ox 02/09/18 12:13 98.3 F 93 H 16 92/51 97 02/09/18 10:58 98 02/09/18 08:27 98.5 F 81 18 93/51 97 02/09/18 03:32 97.9 F 78 16 95/55 98 02/08/18 23:50 97.6 F 76 16 80/42 96 02/08/18 21:50 18 02/08/18 21:39 97.3 F L 83 18 97/50 97 02/08/18 20:15 76 02/08/18 20:13 98.2 F 76 18 83/55 98 02/08/18 18:12 97.9 F 78 18 121/65 100 - Physical Examination General: No Apparent Distress HEENT: Positive: PERRL Cardiac: Positive: irregularly irregular Neuro: Positive: Grossly Intact Extremities: Absent: edema - Labs and Meds Cardiac Enzymes 02/08/18 Range/Units 17:47 CK-MB (CK-2) 15.1 H (0.0-4.0) ng/mL CBC 02/09/18 Range/Units 04:49 WBC 3.7 L (4.5-11.0) K/mm3 RBC 4.13 (3.65-5.03) M/mm3 Hgb 10.2 L (11.8-15.2) gm/dl Hct 31.7 L (35.5-45.6) % Plt Count 178 (140-440) K/mm3 Comprehensive Metabolic Panel 02/09/18 Range/Units 04:49 Sodium 140 D (137-145) mmol/L Potassium 3.7 (3.6-5.0) mmol/L Chloride 103.2 (98-107) mmol/L Carbon Dioxide 21 L D (22-30) mmol/L BUN 30 H (9-20) mg/dL Creatinine 1.8 H (0.8-1.5) mg/dL Glucose 76 (75-100) mg/dL Calcium 8.7 (8.4-10.2) mg/dL
--- NOTE | 2018-02-09 15:52 | Progress Note ---
Assessment and Plan Assessment and plan: Patient is a 77 you Welsh speaking man with a history of HTN, HLD, BPH, CHF, Afib with PPM or AICD (Nancy Zepeda) and CAD S/P Stent placement who presented to [facility] ED with CP and SOB. He was found to be in afib with RVR, most likely because he ran out of his Metoprolol. He was given IV lopressor which helped but then RVR re-occured and he was given IV Cardizem. Radha Dykes was the environmental health specialist. (Daniel Quintero: patient is on Eliquis 5mg bid and he is on lasix 20mg once a day instead of 40mg listed on med recon. All the other home med reconcilation list are correct. last filled Eliquis jan 16 2018) * pCXR IMPRESSION: Cardiomegaly but no CHF.Possible early right basal pneumonia. * Hgb 7.4 (MCV 75) * INR 1.74, D-Dimer 605.22 * Cr 1.6 (no baseline, this is his only visit in EMR) * BG 146 (not known to be diabetic) * Initially Troponin 0.025 then 4.390, followed by 3.650 * proBNP 7151 -NSTEMI: already on bb/statin/asa, started IV heparin >24hours, will stop considering Cardiology concern for the anemia, Cardiology following, they are awaiting records from [facility] prior to ischemic evaluation, Dr. Reyes says there is no plans for cardiac cath at the moment. Cr. 1.6 and hemoglobin is low, he wants records from [facility] first. I called RN to have patient sign a release for records. Cardiology still waiting to review [facility] records. -Acute on Chronic diastolic heart failure: Admit to telemetry, Strict I/O, Monitor UOP q shift, daily weight, chest x ray, diuresis, afterload reduction, cardiology consulted, Echo reviewed -ARF (acute renal failure) with tubular necrosis: Renal function worsening, will consult Nephrology, renal u/s pending -Anemia, microcytic s/p 1 unit prbc, no signs of bleeding: follow up FOBT, iron study, and ferritin -Atrial fibrillation with RVR: Consulted Cardiology, restart home Eliquis -Elevated D-Dimer: V/Q scan low probability with low suspicion -Possible RLL pneumonia vs interstitial edema: empiric treated with iv rocephin/azithromysin==>lungs are clear on repeat CXR, will stop abx -Elevated INR on Eliquis -Hyperglycemia, not known to be diabetic: check a1c==>6.2, start SSI DVT prophylaxis: scd full code History Interval history: [employer] [place] [employer] used but I was on hold for >2 minutes waiting on a Product Managent Intern Patient was seen and examined. Follow-up on current diagnosis sob and chest pain which has resolved. Overnight uneventful. Patient denies any nausea/vomiting or severe headaches. Imaging, nursing note, chart, labs and old chart reviewed. Discussed with patient. at bedside, doesn't speak Citizen [place] Hospitalist Physical - Physical exam Narrative exam: Gen: thin NAD, Awake, Alert, Orientated HEENT: NCAT, EOMI, PERRL, OP Clear Neck: supple, no adenopathy, no thyromegaly, no JVD CVS/Heart: irregular irregular, normal S1S2, pulses present bilaterally Chest/Lungs: diminished bs right base >left base, Symmetrical chest expansion, good air entry bilaterally, right sided PPM GI/Abdomen: soft, NTND, good bowel sounds, no guarding or rebound /Bladder: no suprapubic tenderness, no CVA or paraspinal tenderness Extermity/Skin: no c/c/e, no obvious rash MSK: FROM x 4 Neuro: CN 2-12 grossly intact, no new focal deficits Psych: calm - Constitutional Vitals: Temp Pulse Resp BP Pulse Ox 98.3 F 93 H 16 92/51 97 02/09/18 12:13 02/09/18 12:13 02/09/18 12:13 02/09/18 12:13 02/09/18 12:13 General appearance: Absent: mild distress Results - Labs CBC & Chem 7: 02/09/18 04:49 02/09/18 04:49 Labs: Laboratory Last Values WBC 3.7 K/mm3 (4.5-11.0) L 02/09/18 04:49 RBC 4.13 M/mm3 (3.65-5.03) 02/09/18 04:49 Hgb 10.2 gm/dl (11.8-15.2) L 02/09/18 04:49 Hct 31.7 % (35.5-45.6) L 02/09/18 04:49 MCV 77 fl (84-94) L 02/09/18 04:49 MCH 25 pg (28-32) L 02/09/18 04:49 MCHC 32 % (32-34) 02/09/18 04:49 RDW 22.6 % (13.2-15.2) H 02/09/18 04:49 Plt Count 178 K/mm3 (140-440) 02/09/18 04:49 Lymph % (Auto) 24.4 % (13.4-35.0) 02/07/18 11:05 [place] % (Auto) 6.8 % (0.0-7.3) 02/07/18 11:05 Eos % (Auto) 0.9 % (0.0-4.3) 02/07/18 11:05 Baso % (Auto) 0.5 % (0.0-1.8) 02/07/18 11:05 Lymph # 1.3 K/mm3 (1.2-5.4) 02/07/18 11:05 [place] # 0.4 K/mm3 (0.0-0.8) 02/07/18 11:05 Eos # 0.0 K/mm3 (0.0-0.4) 02/07/18 11:05 Baso # 0.0 K/mm3 (0.0-0.1) 02/07/18 11:05 Seg Neutrophils % 67.4 % (40.0-70.0) 02/07/18 11:05 Seg Neutrophils # 3.7 K/mm3 (1.8-7.7) 02/07/18 11:05 PT 20.8 Sec. (12.2-14.9) H 02/08/18 10:43 INR 1.74 (0.87-1.13) H 02/08/18 10:43 APTT 32.2 Sec. (24.2-36.6) 02/08/18 10:43 D-Dimer 605.22 ng/mlDDU (0-234) H 02/07/18 13:09 Heparin Anti-Xa Level 2.00 U.I./ml (0.3-0.7) H 02/09/18 04:49 Sodium 140 mmol/L (137-145) D 02/09/18 04:49 Potassium 3.7 mmol/L (3.6-5.0) 02/09/18 04:49 Chloride 103.2 mmol/L (98-107) 02/09/18 04:49 Carbon Dioxide 21 mmol/L (22-30) L D 02/09/18 04:49 Anion Gap 20 mmol/L 02/09/18 04:49 BUN 30 mg/dL (9-20) H 02/09/18 04:49 Creatinine 1.8 mg/dL (0.8-1.5) H 02/09/18 04:49 Estimated GFR 37 ml/min 02/09/18 04:49 BUN/Creatinine Ratio 17 % 02/09/18 04:49 Glucose 76 mg/dL (75-100) 02/09/18 04:49 Hemoglobin A1c 6.2 % (4-6) H 02/09/18 04:49 Calcium 8.7 mg/dL (8.4-10.2) 02/09/18 04:49 Magnesium 2.00 mg/dL (1.7-2.3) 02/09/18 04:49 Iron 34 ug/dL (49-181) L 02/08/18 17:51 TIBC 406 mcg/dL (250-450) 02/08/18 17:51 Ferritin 23.1 ng/mL (13.0-400.0) 02/08/18 17:51 Total Bilirubin 0.60 mg/dL (0.1-1.2) 02/07/18 11:07 AST 22 units/L (5-40) 02/07/18 11:07 ALT 7 units/L (7-56) 02/07/18 11:07 Alkaline Phosphatase 133 units/L (35-129) H 02/07/18 11:07 Total Creatine Kinase 384 units/L (55-170) H 02/08/18 17:47 CK-MB (CK-2) 15.1 ng/mL (0.0-4.0) H 02/08/18 17:47 CK-MB (CK-2) Rel Index 3.9 (0-4) 02/08/18 17:47 Troponin T 2.350 ng/mL (0.00-0.029) H* D 02/08/18 17:47 NT-Pro-B Natriuret Pep 7151 pg/mL (0-900) H 02/07/18 11:07 Total Protein 7.6 g/dL (6.3-8.2) 02/07/18 11:07 Albumin 3.5 g/dL (3.9-5) L 02/07/18 11:07 Albumin/Globulin Ratio 0.9 % 02/07/18 11:07 Triglycerides 79 mg/dL (2-149) 02/07/18 11:07 Cholesterol 99 mg/dL (50-199) 02/07/18 11:07 LDL Cholesterol Direct 61 mg/dL (50-130) 02/07/18 11:07 HDL Cholesterol 35 mg/dL (40-59) L 02/07/18 11:07 Cholesterol/HDL Ratio 2.82 % 02/07/18 11:07 TSH 2.090 mlU/mL (0.270-4.200) 02/09/18 04:49 Free T4 1.28 ng/dL (0.76-1.46) 02/08/18 06:44 Blood Type A POSITIVE 02/07/18 12:03 Antibody Screen Negative 02/07/18 12:03 Crossmatch See Detail 02/07/18 12:03
[2018-02-09] MEDS ORDERED: D50W (25GM) Syringe IV PRN (15:57)
[2018-02-09] MEDS: HumaLOG SUB-Q SCH ×2 (18:54→21:57)
[2018-02-09] MEDS: LOPRESSOR PO SCH ×2 (18:55→21:38)
[2018-02-09] MEDS: ELIQUIS PO SCH (21:41)
[2018-02-10] MEDS: ZITHROMAX 500 MG in NACL 0.9% 250ML 250 ML IV SCH (02:29)
[2018-02-10] MEDS: LOPRESSOR PO SCH ×4 (06:06→21:31)
[2018-02-10 07:03] LABS: Hematocrit 31.6 % (35.5-45.6); Hemoglobin 9.9 gm/dl (11.8-15.2); Mean Corpuscular HGB Conc 32 % (32-34); Mean Corpuscular Volume 78 fl (84-94); Platelet Count 185 K/mm3 (140-440); Red Blood Count 4.07 M/mm3 (3.65-5.03)
[2018-02-10 07:06] LABS: Red Cell Distribution Width 22.7 % (13.2-15.2)
[2018-02-10 07:36] LABS: Calcium 8.5 mg/dL (8.4-10.2)
[2018-02-10] MEDS: LASIX IV SCH (11:00)
[2018-02-10] MEDS: ELIQUIS PO SCH ×2 (11:01→21:28)
[2018-02-10] MEDS: SODIUM CHLORIDE FLUSH SYRINGE 10 ML IV SCH ×2 (11:01→21:29)
[2018-02-10] MEDS: COZAAR PO SCH (11:02)
[2018-02-10] MEDS: K-DUR PO SCH (11:02)
[2018-02-10] MEDS: PROSCAR PO SCH (11:02)
[2018-02-10] MEDS: HumaLOG SUB-Q SCH ×4 (11:04→21:33)
[2018-02-10] MEDS: HALFPRIN EC PO SCH (11:06)
--- NOTE | 2018-02-10 12:54 | Consultation ---
History of Present Illness - Reason for Consult Consult date: 02/10/18 acute renal failure, chronic renal failure Requesting physician: EUNICE DOHERTY - History of Present Illness 77 YO Male with HTN, HLD, BPH,CHF, CAD S/P Stent placement presents to ED for evaluation. Pt states that he has experienced pain in his chest and difficulty breathing over the past 1 day with worsening symptoms over the past 10 hours. Pt states that pain is 5/10, substernal, crushing in nature, worsened with exertion, relieved with rest, associated with palpitations, nonradiating. Pt ac knowledges decreased exercise tolerance, as well as dypsnea on exertion. Pt seen and evaluated in ED and found to have symptoms consistent with ACS, ARF, as well as Diastolic Heart Failure. Pt also found tohave Atrial Fib with RVR. Pt treated with antiarrythmic therapy resulting in rate control. Pt denies fever, chills, NVD, trauma, prolonged travel/immobility, hemoptysis, skin rash, or recent ill contacts. Pt admitted to telemetry, Cardiology consulted in ED. Past History Past Medical History: CAD, heart failure, hypertension, hyperlipidemia, other (BPH) Past Surgical History: Other (Stent placement, Pacemaker placement;) Social history: , lives with family. denies: smoking, alcohol abuse, p rescription drug abuse Family history: CAD, hypertension Review of Systems Constitutional: no weight loss, no weight gain, no fever, no chills Ears, nose, mouth and throat: no ear pain, no ear discharge, no tinnitis, no decreased hearing, no nose pain Cardiovascular: chest pain, shortness of breath, dyspnea on exertion, decreased exercise tolerance Respiratory: no cough, no cough with sputum, no excessive sputum, no hemoptysis, no shortness of breath Gastrointestinal: no nausea, no vomiting, no diarrhea, no constipation, no carrera e in bowel habits Genitourinary Male: no hematuria, no flank pain, no discharge, no urinary frequency, no urinary hesitancy Rectal: no pain, no incontinence, no bleeding Musculoskeletal: no neck stiffness, no neck pain, no shooting arm pain, no arm numbness/tingling, no low back pain, no shooting leg pain Integumentary: no rash, no pruritis, no wounds, no jaundice Neurological: no head injury, no transient paralysis, no paralysis, no weakness, no numbness, no seizures, no syncope Psychiatric: no anxiety, no memory loss, no sleep disturbances, no hypersomnia Endocrine: no cold intolerance, no heat intolerance, no excessive thirst, no polydipsia, no nocturia Hematologic/Lymphatic: no easy bruising, no easy bleeding, no lymphadenopathy, no lymphedema Allergic/Immunologic: no urticaria, no allergic rhinitis, no persistent infections, no anaphylaxis Past History Past Medical History: CAD, heart failure, hypertension, hyperlipidemia, other (BPH) Past Surgical History: Other (Stent placement, Pacemaker placement;) Social history: , lives with family. denies: smoking, alcohol abuse, prescription drug abuse Family history: CAD, hypertension Medications and Allergies Allergies Allergy/AdvReac Type Severity Reaction Status Date / Time No Known Allergies Allergy Verified 02/07/18 10:58 Home Medications Medication Instructions Recorded Confirmed Last Taken Type Aspirin [Adult Aspirin] 81 mg PO DAILY 02/07/18 02/07/18 Unknown History Atorvastatin Calcium [Lipitor] 40 mg PO HS 02/07/18 02/07/18 Unknown History Finasteride [Proscar] 5 mg PO QAM 02/07/18 02/07/18 Unknown History Furosemide [Lasix TAB] 40 mg PO QDAY 02/07/18 02/07/18 Unknown History Metoprolol Succinate [Toprol Xl] 100 mg PO BID 02/07/18 02/07/18 Unknown History Nitroglycerin [Nitrostat] 0.4 mg SL Q5M PRN 02/07/18 02/07/18 Unknown History Potassium Chloride [Klor-Con 10] 10 meq PO DAILY 02/07/18 02/07/18 Unknown History Tamsulosin HCl [Flomax] 0.4 mg PO QPM 02/07/18 02/07/18 Unknown History Active Meds: Active Medications Acetaminophen (Tylenol) 650 mg PO Q4H PRN PRN Reason: Pain MILD(1-3)/Fever >100.5/COLÓN Albuterol (Proventil) 2.5 mg IH Q4HRT PRN PRN Reason: Shortness Of Breath Apixaban (Eliquis) 5 mg PO Q12HR [facility]; Protocol Last Admin: 02/10/18 11:01 Dose: 5 mg Documented by: Aspirin (Halfprin Ec) 81 mg PO DAILY [facility] Last Admin: 02/10/18 11:06 Dose: 81 mg Documented by: Atorvastatin Calcium (Lipitor) 40 mg PO HS [facility] Last Admin: 02/09/18 21:41 Dose: 40 mg Documented by: Dextrose (D50w (25gm) Syringe) 50 ml IV PRN PRN PRN Reason: Hypoglycemia Finasteride (Proscar) 5 mg PO QAM [facility] Last Admin: 02/10/18 11:02 Dose: 5 mg Documented by: Furosemide (Lasix) 40 mg IV QDAY [facility] Last Admin: 02/10/18 11:00 Dose: 40 mg Documented by: Insulin Human Lispro (Humalog) 0 unit SUB-Q ACHS [facility]; Protocol Last Admin: 02/10/18 11:04 Dose: Not Given Documented by: Losartan Potassium (Cozaar) 25 mg PO QDAY [facility] Last Admin: 02/10/18 11:02 Dose: 25 mg Documented by: Metoprolol Tartrate (Lopressor) 25 mg PO Q8HR [facility] Last Admin: 02/10/18 06:06 Dose: Not Given Documented by: Nitroglycerin (Nitrostat) 0.4 mg SL Q5M PRN PRN Reason: Chest Pain Ondansetron HCl (Zofran) 4 mg IV Q8H PRN PRN Reason: Nausea And Vomiting Potassium Chloride (K-Dur) 10 meq PO QDAY [facility] Last Admin: 02/10/18 11:02 Dose: 10 meq Documented by: Sodium Chloride (Sodium Chloride Flush Syringe 10 Ml) 10 ml IV BID [facility] Last Admin: 02/10/18 11:01 Dose: 10 ml Documented by: Sodium Chloride (Sodium Chloride Flush Syringe 10 Ml) 10 ml IV PRN PRN PRN Reason: LINE FLUSH Tamsulosin HCl (Flomax) 0.4 mg PO QPM [facility] Last Admin: 02/08/18 18:25 Dose: 0.4 mg Documented by: Exam - Vital Signs Vital signs: Vital Signs Temp Pulse Resp BP Pulse Ox 97.4 F L 138 H 22 135/84 100 02/07/18 10:29 02/07/18 10:29 02/07/18 10:29 02/07/18 10:29 02/07/18 10:29 - Physical Exam Narrative exam: General appearance: Present: mild distress - EENT Eyes: Present: PERRL ENT: hearing intact, clear oral mucosa - Neck Neck: Present: supple, normal ROM - Respiratory Respiratory effort: normal Respiratory: bilateral: CTA - Cardiovascular Rhythm: irregularly irregular Heart Sounds: Present: S1 & S2. Absent: rub, click - Extremities Extremities: pulses symmetrical, No edema Peripheral Pulses: within normal limits - Abdominal General gastrointestinal: Present: soft, non-tender, non-distended, normal bowel sounds Male genitourinary: Present: normal - Integumentary Integumentary: Present: clear, warm, dry - Musculoskeletal Musculoskeletal: gait normal, strength equal bilaterally - Psychiatric Psychiatric: appropriate mood/affect, intact judgment & insight - Neurologic Neurologic: CNII-XII intact, moves all extremities Results - Lab Results 02/10/18 06:02 02/10/18 06:02 Most recent lab results Calcium 8.5 mg/dL (8.4-10.2) 02/10/18 06:02 Magnesium 2.00 mg/dL (1.7-2.3) 02/09/18 04:49 Assessment and Plan Impression: * MIRZA on ckd * NSTEMI * Afib with RVR * PNA * Anemia * Acute on chr jethro CHF Plan: * avoid nephrotoxins, strict i/os * no indication for [employer] OPER[employer] * troponin noted * cr 1.9 and stable * daily lytes * cards following, may need LHC with elevated troponin * add 1/2 ns for gentle hydration and stop cachorro.
--- NOTE | 2018-02-10 12:58 | Progress Note ---
Assessment and Plan - Patient Problems (1) ACS (acute coronary syndrome) Current Visit: Yes Status: Acute Plan to address problem: Patient presented to the hospital with symptomatic, rapid atrial fibrillation. Further cardiac investigation in this hospital has revealed multiple pathologies: 1. Patient has an in situ cardiac defibrillator, but unable to provide a history of his cardiac workup leading to the implantation of the ICD. 2. Echocardiogram reveals well-preserved left ventricular systolic function, but is asymmetric septal hypertrophy. 3. We also saw a moderate degree of mitral valve prolapse, and moderate to severe calcific aortic stenosis. 4. There is marked dilatation of both left and right atria, consistent with a likely long-standing and probably permanent atrial fibrillation. In the setting of these multiple cardiac pathologies and evidence of ICD implant, we will need to review of records of prior cardiac evaluation before considering additional cardiac investigation and treatments. Subjective Date of service: 02/10/18 Interval history: Patient is comfortable, no new cardiac complaints. No chest pain and no unusual shortness of breath. Objective Vital Signs Temp Pulse Resp BP Pulse Ox 02/10/18 12:19 98.2 F 113 H 18 121/63 95 02/10/18 08:53 98.4 F 87 16 104/56 99 02/10/18 05:30 98.3 F 17 105/57 02/09/18 23:48 98.1 F 82 17 98/57 96 02/09/18 20:14 98.6 F 17 86/42 02/09/18 20:11 81 02/09/18 18:46 82 - Physical Examination General: No Apparent Distress HEENT: Positive: PERRL Neck: Positive: neck supple Cardiac: Positive: irregularly irregular, Systolic Murmur Lungs: Positive: Decreased Breath Sounds Neuro: Positive: Grossly Intact Abdomen: Positive: Soft Skin: Positive: Clear Extremities: Absent: edema - Labs and Meds CBC 02/10/18 Range/Units 06:02 WBC 4.5 (4.5-11.0) K/mm3 RBC 4.07 (3.65-5.03) M/mm3 Hgb 9.9 L (11.8-15.2) gm/dl Hct 31.6 L (35.5-45.6) % Plt Count 185 (140-440) K/mm3 Comprehensive Metabolic Panel 02/10/18 Range/Units 06:02 Sodium 142 (137-145) mmol/L Potassium 3.9 (3.6-5.0) mmol/L Chloride 105.4 (98-107) mmol/L Carbon Dioxide 20 L (22-30) mmol/L BUN 33 H (9-20) mg/dL Creatinine 1.9 H (0.8-1.5) mg/dL Glucose 82 (75-100) mg/dL Calcium 8.5 (8.4-10.2) mg/dL
--- NOTE | 2018-02-10 15:28 | Progress Note ---
Assessment and Plan Assessment and plan: Patient is a 77 you Greek speaking man with a history of HTN, HLD, BPH, CHF, Afib with PPM or AICD ([facility]) and CAD S/P Stent placement who presented to [facility] ED with CP and SOB. He was found to be in afib with RVR, most likely because he ran out of his Metoprolol. He was given IV lopressor which helped but then RVR re-occured and he was given IV Cardizem. Radha Dykes was the clay preparation supervisor. (Daniel Quintero: patient is on Eliquis 5mg bid and he is on lasix 20mg once a day instead of 40mg listed on med recon. All the other home med reconcilation list are correct. last filled Eliquis jan 16 2018) * pCXR IMPRESSION: Cardiomegaly but no CHF.Possible early right basal pneumonia. * Hgb 7.4 (MCV 75) * INR 1.74, D-Dimer 605.22 * Cr 1.6 (no baseline, this is his only visit in EMR) * BG 146 (not known to be diabetic) * Initially Troponin 0.025 then 4.390, followed by 3.650 * proBNP 7151 -NSTEMI: Medical management per cardiology, awaiting records from his corn picker. Patient may need cath but requires all previous records first -Acute on Chronic diastolic heart failure patient has dilated cardiomyopathy status post ICD: Medical management -ARF (acute renal failure) with tubular necrosis: Nephrology input appreciated, hydrating and avoiding nephrotoxins, as patient may need cardiac cath -Anemia, microcytic s/p 1 unit prbc, no signs of bleeding: follow up FOBT, iron study, and ferritin, likely due to anemia of chronic disease -Atrial fibrillation with RVR and hypercoagulable states: Continue rate control medications, continue eliquis -Elevated D-Dimer: V/Q scan low probability with low suspicion Pneumonia ruled out, infiltrates were due to CHF Coagulopathy, iatrogenic due to eliquis DVT prophylaxis: Full anticoagulated full code History Interval history: Review of systems Constitutional: No fevers, no malaise, no joint pains CVS: No chest pain, no orthopnea, no dyspnea on exertion, no pedal edema GI: No abdominal pain, no diarrhea, no vomiting, no constipation Respiratory: No shortness of breath, no wheezing, no coughing Hospitalist Physical - Physical exam Narrative exam: General.: Appears well, no distress, nontoxic HEENT: Moist mucous membranes, extraocular muscles intact, no lymphadenopathy Neck: supple Cardiac: S1-S2 heard Lungs: clear to auscultation bilaterally Abdomen: soft , nontender, nondistended, bowel sounds positive Extremities: no edema clubbing or cyanosis Skin: no rash or lesions Neurologic: no gross focal deficits Psych: appropriate behavior, appropriate mood, corporative, judgment intact - Constitutional Vitals: Temp Pulse Resp BP Pulse Ox 98.2 F 113 H 18 121/63 95 02/10/18 12:19 02/10/18 12:19 02/10/18 12:19 02/10/18 12:19 02/10/18 12:19 General appearance: Absent: mild distress Results - Labs CBC & Chem 7: 02/11/18 06:18 02/11/18 06:18 Labs: Laboratory Last Values WBC 4.5 K/mm3 (4.5-11.0) 02/10/18 06:02 RBC 4.07 M/mm3 (3.65-5.03) 02/10/18 06:02 Hgb 9.9 gm/dl (11.8-15.2) L 02/10/18 06:02 Hct 31.6 % (35.5-45.6) L 02/10/18 06:02 MCV 78 fl (84-94) L 02/10/18 06:02 MCH 24 pg (28-32) L 02/10/18 06:02 MCHC 32 % (32-34) 02/10/18 06:02 RDW 22.7 % (13.2-15.2) H 02/10/18 06:02 Plt Count 185 K/mm3 (140-440) 02/10/18 06:02 Lymph % (Auto) 24.4 % (13.4-35.0) 02/07/18 11:05 [place] % (Auto) 6.8 % (0.0-7.3) 02/07/18 11:05 Eos % (Auto) 0.9 % (0.0-4.3) 02/07/18 11:05 Baso % (Auto) 0.5 % (0.0-1.8) 02/07/18 11:05 Lymph # 1.3 K/mm3 (1.2-5.4) 02/07/18 11:05 [place] # 0.4 K/mm3 (0.0-0.8) 02/07/18 11:05 Eos # 0.0 K/mm3 (0.0-0.4) 02/07/18 11:05 Baso # 0.0 K/mm3 (0.0-0.1) 02/07/18 11:05 Seg Neutrophils % 67.4 % (40.0-70.0) 02/07/18 11:05 Seg Neutrophils # 3.7 K/mm3 (1.8-7.7) 02/07/18 11:05 PT 20.8 Sec. (12.2-14.9) H 02/08/18 10:43 INR 1.74 (0.87-1.13) H 02/08/18 10:43 APTT 32.2 Sec. (24.2-36.6) 02/08/18 10:43 D-Dimer 605.22 ng/mlDDU (0-234) H 02/07/18 13:09 Heparin Anti-Xa Level 2.00 U.I./ml (0.3-0.7) H 02/09/18 04:49 Sodium 142 mmol/L (137-145) 02/10/18 06:02 Potassium 3.9 mmol/L (3.6-5.0) 02/10/18 06:02 Chloride 105.4 mmol/L (98-107) 02/10/18 06:02 Carbon Dioxide 20 mmol/L (22-30) L 02/10/18 06:02 Anion Gap 21 mmol/L 02/10/18 06:02 BUN 33 mg/dL (9-20) H 02/10/18 06:02 Creatinine 1.9 mg/dL (0.8-1.5) H 02/10/18 06:02 Estimated GFR 34 ml/min 02/10/18 06:02 BUN/Creatinine Ratio 17 % 02/10/18 06:02 Glucose 82 mg/dL (75-100) 02/10/18 06:02 POC Glucose 90 (70-105) 02/09/18 21:50 Hemoglobin A1c 6.2 % (4-6) H 02/09/18 04:49 Calcium 8.5 mg/dL (8.4-10.2) 02/10/18 06:02 Magnesium 2.00 mg/dL (1.7-2.3) 02/09/18 04:49 Iron 34 ug/dL (49-181) L 02/08/18 17:51 TIBC 406 mcg/dL (250-450) 02/08/18 17:51 Ferritin 23.1 ng/mL (13.0-400.0) 02/08/18 17:51 Total Bilirubin 0.60 mg/dL (0.1-1.2) 02/07/18 11:07 AST 22 units/L (5-40) 02/07/18 11:07 ALT 7 units/L (7-56) 02/07/18 11:07 Alkaline Phosphatase 133 units/L (35-129) H 02/07/18 11:07 Total Creatine Kinase 384 units/L (55-170) H 02/08/18 17:47 CK-MB (CK-2) 15.1 ng/mL (0.0-4.0) H 02/08/18 17:47 CK-MB (CK-2) Rel Index 3.9 (0-4) 02/08/18 17:47 Troponin T 2.350 ng/mL (0.00-0.029) H* D 02/08/18 17:47 NT-Pro-B Natriuret Pep 7151 pg/mL (0-900) H 02/07/18 11:07 Total Protein 7.6 g/dL (6.3-8.2) 02/07/18 11:07 Albumin 3.5 g/dL (3.9-5) L 02/07/18 11:07 Albumin/Globulin Ratio 0.9 % 02/07/18 11:07 Triglycerides 79 mg/dL (2-149) 02/07/18 11:07 Cholesterol 99 mg/dL (50-199) 02/07/18 11:07 LDL Cholesterol Direct 61 mg/dL (50-130) 02/07/18 11:07 HDL Cholesterol 35 mg/dL (40-59) L 02/07/18 11:07 Cholesterol/HDL Ratio 2.82 % 02/07/18 11:07 TSH 2.090 mlU/mL (0.270-4.200) 02/09/18 04:49 Free T4 1.28 ng/dL (0.76-1.46) 02/08/18 06:44 Blood Type A POSITIVE 02/07/18 12:03 Antibody Screen Negative 02/07/18 12:03 Crossmatch See Detail 02/07/18 12:03
[2018-02-10] MEDS: FLOMAX PO SCH ×2 (18:05→18:06)
[2018-02-11] MEDS: NACL 0.45% 1000 ML 1,000 ML IV SCH (03:33)
[2018-02-11] MEDS: LOPRESSOR PO SCH ×3 (05:49→21:46)
[2018-02-11 06:49] LABS: Hematocrit 34.3 % (35.5-45.6); Hemoglobin 10.7 gm/dl (11.8-15.2); Mean Corpuscular HGB Conc 31 % (32-34); Mean Corpuscular Volume 78 fl (84-94); Platelet Count 186 K/mm3 (140-440); Red Blood Count 4.42 M/mm3 (3.65-5.03)
[2018-02-11 07:09] LABS: Calcium 8.6 mg/dL (8.4-10.2)
[2018-02-11 07:12] LABS: Red Cell Distribution Width 22.8 % (13.2-15.2)
[2018-02-11] MEDS: HumaLOG SUB-Q SCH ×4 (09:03→22:15)
[2018-02-11] MEDS: PROSCAR PO SCH (10:21)
[2018-02-11] MEDS: ELIQUIS PO SCH ×2 (10:22→21:45)
[2018-02-11] MEDS: SODIUM CHLORIDE FLUSH SYRINGE 10 ML IV SCH ×2 (10:22→21:46)
[2018-02-11] MEDS: HALFPRIN EC PO SCH (10:22)
[2018-02-11] MEDS: LASIX IV SCH (10:22)
[2018-02-11] MEDS: K-DUR PO SCH (10:22)
--- NOTE | 2018-02-11 12:33 | Progress Note ---
Assessment and Plan Impression: * MIRZA on ckd * NSTEMI * Afib with RVR * PNA * Anemia * Acute on chr jethro CHF Plan: * avoid nephrotoxins, strict i/os * no indication for DIRECTOR PATIENT ACCOUNTING * troponin noted * cr 1.9 and stable * follow up ua, renal us is pending * add po sodium bicarbonate * daily lytes * cards following, may need LHC with elevated troponin, [facility] records available on chart * add 1/2 ns for gentle hydration and stop cachorro. Subjective Date of service: 02/11/18 Principal diagnosis: mirza on ckd Interval history: resting in bed today Objective - Exam Narrative Exam: General appearance: Present: mild distress - EENT Eyes: Present: PERRL ENT: hearing intact, clear oral mucosa - Neck Neck: Present: supple, normal ROM - Respiratory Respiratory effort: normal Respiratory: bilateral: CTA - Cardiovascular Rhythm: irregularly irregular Heart Sounds: Present: S1 & S2. Absent: rub, click - Extremities Extremities: pulses symmetrical, No edema Peripheral Pulses: within normal limits - Abdominal General gastrointestinal: Present: soft, non-tender, non-distended, normal bowel sounds Male genitourinary: Present: normal - Integumentary Integumentary: Present: clear, warm, dry - Musculoskeletal Musculoskeletal: gait normal, strength equal bilaterally - Psychiatric Psychiatric: appropriate mood/affect, intact judgment & insight - Neurologic Neurologic: CNII-XII intact, moves all extremities - Vital Signs Vital signs: Vital Signs - 12hr 02/11/18 02/11/18 02/11/18 05:13 08:06 12:18 Temperature 98.2 F 98.2 F 98.1 F Pulse Rate 87 93 H 101 H Respiratory 18 18 18 Rate Blood Pressure 85/51 101/56 109/63 O2 Sat by Pulse 97 99 96 Oximetry - Lab 02/11/18 06:18 02/11/18 06:18 Most recent lab results Calcium 8.6 mg/dL (8.4-10.2) 02/11/18 06:18 Magnesium 2.00 mg/dL (1.7-2.3) 02/09/18 04:49 Medications & Allergies - Medications Allergies/Adverse Reactions: Allergies No Known Allergies Allergy (Verified 02/07/18 10:58) Home Medications: Home Medications Medication Instructions Recorded Confirmed Last Taken Type Aspirin [Adult Aspirin] 81 mg PO DAILY 02/07/18 02/07/18 Unknown History Atorvastatin Calcium [Lipitor] 40 mg PO HS 02/07/18 02/07/18 Unknown History Finasteride [Proscar] 5 mg PO QAM 02/07/18 02/07/18 Unknown History Furosemide [Lasix TAB] 40 mg PO QDAY 02/07/18 02/07/18 Unknown History Metoprolol Succinate [Toprol Xl] 100 mg PO BID 02/07/18 02/07/18 Unknown History Nitroglycerin [Nitrostat] 0.4 mg SL Q5M PRN 02/07/18 02/07/18 Unknown History Potassium Chloride [Klor-Con 10] 10 meq PO DAILY 02/07/18 02/07/18 Unknown History Tamsulosin HCl [Flomax] 0.4 mg PO QPM 02/07/18 02/07/18 Unknown History Active Medications: Generic Name Dose Route Start Last Admin Trade Name Freq PRN Reason Stop Dose Admin Acetaminophen 650 mg 02/07/18 13:10 Tylenol PO Q4H PRN Pain MILD(1-3)/Fever >100.5/COLÓN Albuterol 2.5 mg 02/07/18 13:10 Proventil IH Q4HRT PRN Shortness Of Breath Apixaban 5 mg 02/09/18 22:00 02/11/18 10:22 Eliquis PO 5 mg Q12HR COLBY Administration Protocol Aspirin 81 mg 02/08/18 10:00 02/11/18 10:22 Halfprin Ec PO 81 mg DAILY COLBY Administration Atorvastatin Calcium 40 mg 02/07/18 22:00 02/10/18 21:28 Lipitor PO 40 mg HS COLBY Administration Dextrose 50 ml 02/09/18 15:57 D50w (25gm) Syringe IV PRN PRN Hypoglycemia Finasteride 5 mg 02/08/18 10:00 02/11/18 10:21 Proscar PO 5 mg QAM COLBY Administration Furosemide 40 mg 02/08/18 17:00 02/11/18 10:22 Lasix IV 40 mg QDAY COLBY Administration Sodium Chloride 1,000 mls @ 50 mls/hr 02/10/18 14:00 02/11/18 03:33 Nacl 0.45% 1000 Ml IV 50 mls/hr DIRECT COLBY Administration Insulin Human Lispro 0 unit 02/09/18 16:30 02/11/18 09:03 Humalog SUB-Q Not Given ACHS [facility] Protocol Metoprolol Tartrate 25 mg 02/09/18 14:00 02/11/18 05:49 Lopressor PO Not Given Q8HR [facility] Nitroglycerin 0.4 mg 02/07/18 13:11 Nitrostat SL Q5M PRN Chest Pain Ondansetron HCl 4 mg 02/07/18 13:10 Zofran IV Q8H PRN Nausea And Vomiting Potassium Chloride 10 meq 02/08/18 10:00 02/11/18 10:22 K-Dur PO 10 meq QDAY COLBY Administration Sodium Chloride 10 ml 02/07/18 22:00 02/11/18 10:22 Sodium Chloride Flush Syringe 10 Ml IV 10 ml BID COLBY Administration Sodium Chloride 10 ml 02/07/18 13:10 Sodium Chloride Flush Syringe 10 Ml IV PRN PRN LINE FLUSH Tamsulosin HCl 0.4 mg 02/07/18 18:00 02/10/18 18:06 Flomax PO 0.4 mg QPM COLBY Administration
--- NOTE | 2018-02-11 13:01 | Progress Note ---
Assessment and Plan - Patient Problems (1) ACS (acute coronary syndrome) Current Visit: Yes Status: Acute Plan to address problem: Patient presented to the hospital with symptomatic, rapid atrial fibrillation. Further cardiac investigation in this hospital has revealed multiple pathologies: 1. Patient has an in situ cardiac defibrillator, but unable to provide a history of his cardiac workup leading to the implantation of the ICD. 2. Echocardiogram reveals well-preserved left ventricular systolic function, but is asymmetric septal hypertrophy. 3. We also saw a moderate degree of mitral valve prolapse, and moderate to severe calcific aortic stenosis. 4. There is marked dilatation of both left and right atria, consistent with a likely long-standing and probably permanent atrial fibrillation. In the setting of these multiple cardiac pathologies and evidence of ICD implant, we will need to review of records of prior cardiac evaluation before considering additional cardiac investigation and treatments. Patient has identified his primary laminating machine tender, who is Dr. Jame Houston in [place]. We will contact Dr. Houston's office for details of his prior cardiac assessments. Subjective Date of service: 02/11/18 Principal diagnosis: raya on ckd Interval history: Patient has identified his primary laminating machine tender, who is Dr. Jame Houston in [place]. We will contact Dr. Houston's office for details of his prior cardiac assessments. Objective Vital Signs Temp Pulse Resp BP Pulse Ox 02/11/18 12:18 98.1 F 101 H 18 109/63 96 02/11/18 08:06 98.2 F 93 H 18 101/56 99 02/11/18 05:13 98.2 F 87 18 85/51 97 02/10/18 23:52 98.4 F 87 18 98/56 98 02/10/18 21:31 113 H 02/10/18 20:52 113 H 02/10/18 19:59 98.4 F 82 18 105/62 100 - Physical Examination General: No Apparent Distress HEENT: Positive: PERRL Neck: Positive: neck supple Cardiac: Positive: Reg Rate and Rhythm, Systolic Murmur Lungs: Positive: Decreased Breath Sounds Neuro: Positive: Grossly Intact Abdomen: Positive: Soft Skin: Positive: Clear Extremities: Absent: edema - Labs and Meds CBC 02/11/18 Range/Units 06:18 WBC 4.4 L (4.5-11.0) K/mm3 RBC 4.42 (3.65-5.03) M/mm3 Hgb 10.7 L (11.8-15.2) gm/dl Hct 34.3 L (35.5-45.6) % Plt Count 186 (140-440) K/mm3 Comprehensive Metabolic Panel 02/11/18 Range/Units 06:18 Sodium 135 L (137-145) mmol/L Potassium 4.3 (3.6-5.0) mmol/L Chloride 99.7 (98-107) mmol/L Carbon Dioxide 19 L (22-30) mmol/L BUN 29 H (9-20) mg/dL Creatinine 1.8 H (0.8-1.5) mg/dL Glucose 86 (75-100) mg/dL Calcium 8.6 (8.4-10.2) mg/dL
--- NOTE | 2018-02-11 13:25 | Progress Note ---
Assessment and Plan Assessment and plan: Patient is a 77 you Tuvaluan speaking man with a history of HTN, HLD, BPH, CHF, Afib with PPM or AICD ([facility] [place]) and CAD S/P Stent placement who presented to [facility] ED with CP and SOB. He was found to be in afib with RVR, most likely because he ran out of his Metoprolol. He was given IV lopressor which helped but then RVR re-occured and he was given IV Cardizem. Radha Dykes was the american sign language interpreter. (Daniel Quintero: patient is on Eliquis 5mg bid and he is on lasix 20mg once a day instead of 40mg listed on med recon. All the other home med reconcilation list are correct. last filled Eliquis jan 16 2018) * pCXR IMPRESSION: Cardiomegaly but no CHF.Possible early right basal pneumonia. * Hgb 7.4 (MCV 75) * INR 1.74, D-Dimer 605.22 * Cr 1.6 (no baseline, this is his only visit in EMR) * BG 146 (not known to be diabetic) * Initially Troponin 0.025 then 4.390, followed by 3.650 * proBNP 7151 -NSTEMI: Medical management per cardiology, awaiting records from his endorsement clerk. Patient may need cath but requires all previous records first -Acute on Chronic diastolic heart failure patient has dilated cardiomyopathy status post ICD: Medical management -ARF (acute renal failure) with tubular necrosis: Nephrology input appreciated, hydrating and avoiding nephrotoxins, as patient may need cardiac cath -Anemia, microcytic s/p 1 unit prbc, no signs of bleeding: follow up FOBT, iron study, and ferritin, likely due to anemia of chronic disease -Atrial fibrillation with RVR and hypercoagulable states: Continue rate control medications, continue eliquis -Elevated D-Dimer: V/Q scan low probability with low suspicion Pneumonia ruled out, infiltrates were due to CHF Coagulopathy, iatrogenic due to eliquis DVT prophylaxis: Full anticoagulated full code History Interval history: Review of systems Constitutional: No fevers, no malaise, no joint pains CVS: No chest pain, no orthopnea, no dyspnea on exertion, no pedal edema GI: No abdominal pain, no diarrhea, no vomiting, no constipation Respiratory: No shortness of breath, no wheezing, no coughing Hospitalist Physical - Physical exam Narrative exam: General.: Appears well, no distress, nontoxic HEENT: Moist mucous membranes, extraocular muscles intact, no lymphadenopathy Neck: supple Cardiac: S1-S2 heard Lungs: clear to auscultation bilaterally Abdomen: soft , nontender, nondistended, bowel sounds positive Extremities: no edema clubbing or cyanosis Skin: no rash or lesions Neurologic: no gross focal deficits Psych: appropriate behavior, appropriate mood, corporative, judgment intact - Constitutional Vitals: Temp Pulse Resp BP Pulse Ox 98.1 F 101 H 18 109/63 96 02/11/18 12:18 02/11/18 12:18 02/11/18 12:18 02/11/18 12:18 02/11/18 12:18 General appearance: Absent: mild distress Results - Labs CBC & Chem 7: 02/11/18 06:18 02/11/18 06:18 Labs: Laboratory Last Values WBC 4.4 K/mm3 (4.5-11.0) L 02/11/18 06:18 RBC 4.42 M/mm3 (3.65-5.03) 02/11/18 06:18 Hgb 10.7 gm/dl (11.8-15.2) L 02/11/18 06:18 Hct 34.3 % (35.5-45.6) L 02/11/18 06:18 MCV 78 fl (84-94) L 02/11/18 06:18 MCH 24 pg (28-32) L 02/11/18 06:18 MCHC 31 % (32-34) L 02/11/18 06:18 RDW 22.8 % (13.2-15.2) H 02/11/18 06:18 Plt Count 186 K/mm3 (140-440) 02/11/18 06:18 Lymph % (Auto) 24.4 % (13.4-35.0) 02/07/18 11:05 [place] % (Auto) 6.8 % (0.0-7.3) 02/07/18 11:05 Eos % (Auto) 0.9 % (0.0-4.3) 02/07/18 11:05 Baso % (Auto) 0.5 % (0.0-1.8) 02/07/18 11:05 Lymph # 1.3 K/mm3 (1.2-5.4) 02/07/18 11:05 [place] # 0.4 K/mm3 (0.0-0.8) 02/07/18 11:05 Eos # 0.0 K/mm3 (0.0-0.4) 02/07/18 11:05 Baso # 0.0 K/mm3 (0.0-0.1) 02/07/18 11:05 Seg Neutrophils % 67.4 % (40.0-70.0) 02/07/18 11:05 Seg Neutrophils # 3.7 K/mm3 (1.8-7.7) 02/07/18 11:05 PT 20.8 Sec. (12.2-14.9) H 02/08/18 10:43 INR 1.74 (0.87-1.13) H 02/08/18 10:43 APTT 32.2 Sec. (24.2-36.6) 02/08/18 10:43 D-Dimer 605.22 ng/mlDDU (0-234) H 02/07/18 13:09 Heparin Anti-Xa Level 2.00 U.I./ml (0.3-0.7) H 02/09/18 04:49 Sodium 135 mmol/L (137-145) L 02/11/18 06:18 Potassium 4.3 mmol/L (3.6-5.0) 02/11/18 06:18 Chloride 99.7 mmol/L (98-107) 02/11/18 06:18 Carbon Dioxide 19 mmol/L (22-30) L 02/11/18 06:18 Anion Gap 21 mmol/L 02/11/18 06:18 BUN 29 mg/dL (9-20) H 02/11/18 06:18 Creatinine 1.8 mg/dL (0.8-1.5) H 02/11/18 06:18 Estimated GFR 37 ml/min 02/11/18 06:18 BUN/Creatinine Ratio 16 % 02/11/18 06:18 Glucose 86 mg/dL (75-100) 02/11/18 06:18 POC Glucose 90 (70-105) 02/09/18 21:50 Hemoglobin A1c 6.2 % (4-6) H 02/09/18 04:49 Calcium 8.6 mg/dL (8.4-10.2) 02/11/18 06:18 Magnesium 2.00 mg/dL (1.7-2.3) 02/09/18 04:49 Iron 34 ug/dL (49-181) L 02/08/18 17:51 TIBC 406 mcg/dL (250-450) 02/08/18 17:51 Ferritin 23.1 ng/mL (13.0-400.0) 02/08/18 17:51 Total Bilirubin 0.60 mg/dL (0.1-1.2) 02/07/18 11:07 AST 22 units/L (5-40) 02/07/18 11:07 ALT 7 units/L (7-56) 02/07/18 11:07 Alkaline Phosphatase 133 units/L (35-129) H 02/07/18 11:07 Total Creatine Kinase 384 units/L (55-170) H 02/08/18 17:47 CK-MB (CK-2) 15.1 ng/mL (0.0-4.0) H 02/08/18 17:47 CK-MB (CK-2) Rel Index 3.9 (0-4) 02/08/18 17:47 Troponin T 2.350 ng/mL (0.00-0.029) H* D 02/08/18 17:47 NT-Pro-B Natriuret Pep 7151 pg/mL (0-900) H 02/07/18 11:07 Total Protein 7.6 g/dL (6.3-8.2) 02/07/18 11:07 Albumin 3.5 g/dL (3.9-5) L 02/07/18 11:07 Albumin/Globulin Ratio 0.9 % 02/07/18 11:07 Triglycerides 79 mg/dL (2-149) 02/07/18 11:07 Cholesterol 99 mg/dL (50-199) 02/07/18 11:07 LDL Cholesterol Direct 61 mg/dL (50-130) 02/07/18 11:07 HDL Cholesterol 35 mg/dL (40-59) L 02/07/18 11:07 Cholesterol/HDL Ratio 2.82 % 02/07/18 11:07 TSH 2.090 mlU/mL (0.270-4.200) 02/09/18 04:49 Free T4 1.28 ng/dL (0.76-1.46) 02/08/18 06:44 Blood Type A POSITIVE 02/07/18 12:03 Antibody Screen Negative 02/07/18 12:03 Crossmatch See Detail 02/07/18 12:03
[2018-02-11] MEDS: SODIUM BICARBONATE PO SCH ×2 (14:01→21:45)
[2018-02-11] MEDS: FLOMAX PO SCH (17:54)
[2018-02-11 18:12] LABS: Bilirubin,Urine NEG (Negative); Blood,Urine MOD (Negative); Color,Urine Straw (Yellow); Protein,Urine <15 mg/dL mg/dL (Negative); Urobilinogen,Urine < 2.0 mg/dL (<2.0); WBC,Urine < 1.0 /HPF (0.0-6.0)
[2018-02-12] MEDS: TYLENOL PO PRN ×2 (00:03→11:44)
[2018-02-12] MEDS: NACL 0.45% 1000 ML 1,000 ML IV SCH (00:04)
[2018-02-12] MEDS: LOPRESSOR PO SCH ×3 (05:44→23:00)
[2018-02-12 05:49] LABS: Calcium 8.3 mg/dL (8.4-10.2)
[2018-02-12] MEDS: HumaLOG SUB-Q SCH ×4 (08:12→23:00)
--- NOTE | 2018-02-12 09:15 | Ultrasound Report ---
ULTRASOUND RENAL BILATERAL HISTORY: Renal failure. TECHNIQUE: transabdominal ultrasound with color Doppler interrogation. FINDINGS: The right kidney measures 9.1 cm. The left kidney measures 10.1 cm. Mild diffuse cortical thinning and increased cortical echotexture is identified bilaterally. A 1.6 cm cyst is noted at the superior pole of the right kidney. A 1.2 cm cyst is noted in the superior pole of the left kidney. No evidence for shadowing calculus, mass or hydronephrosis. The bladder is partially empty but unremarkable. A prominent prostate gland is suspected. IMPRESSION: Findings consistent with early chronic renal parenchymal disease. Scattered renal cysts. No obstructive uropathy.
[2018-02-12] MEDS: LASIX IV SCH (09:24)
[2018-02-12] MEDS: ELIQUIS PO SCH (09:25)
[2018-02-12] MEDS: PROSCAR PO SCH (09:25)
[2018-02-12] MEDS: K-DUR PO SCH (09:25)
[2018-02-12] MEDS: HALFPRIN EC PO SCH (09:26)
[2018-02-12] MEDS: SODIUM BICARBONATE PO SCH ×2 (09:26→21:41)
[2018-02-12] MEDS: SODIUM CHLORIDE FLUSH SYRINGE 10 ML IV SCH ×2 (09:30→21:42)
--- NOTE | 2018-02-12 10:24 | Progress Note ---
Assessment and Plan Impression: * MIRZA on chronic kidney disease --Renal u/s: right 9.1cm, left 10.1cm; scattered renal cysts; parenchymal disease --UA: +blood, negative protein * NSTEMI * Afib with RVR * Acute on chronic diastolic heart failure * PNA * Anemia * Microscopic hematuria Plan: * Renal function improved - SCr 1.4mg/dL today * Continue to hold ACEi for now * Sodium declined - will d/c 1/2 NS and start NS at current rate * Continue PO sodium bicarbonate * Troponin noted; may require LHC - stable for a renal standpoint; cardiology following * Strict I/O * Avoid potential nephrotoxic agents Subjective Date of service: 02/12/18 Principal diagnosis: mirza on ckd Interval history: Family at bedside. Patient denies SOB and chest pain. Objective - Vital Signs Vital signs: Vital Signs - 12hr 02/12/18 00:11 Temperature 98.1 F Pulse Rate 137 H Respiratory 18 Rate Blood Pressure 96/64 O2 Sat by Pulse 99 Oximetry - General Appearance General appearance: well-developed, well-nourished EENT: ATNC Respiratory: Present: Clear to Ascultation Cardiology: regular, S1S2 Gastrointestinal: normal, no tenderness, no distended Integumentary: warm and dry Neurologic: no focal deficit Musculoskeletal: other (no edema) Psychiatric: cooperative - Lab 02/11/18 06:18 02/12/18 04:50 Most recent lab results Calcium 8.3 mg/dL (8.4-10.2) L 02/12/18 04:50 Magnesium 2.00 mg/dL (1.7-2.3) 02/09/18 04:49 Medications & Allergies - Medications Allergies/Adverse Reactions: Allergies No Known Allergies Allergy (Verified 02/07/18 10:58) Home Medications: Home Medications Medication Instructions Recorded Confirmed Last Taken Type Aspirin [Adult Aspirin] 81 mg PO DAILY 02/07/18 02/07/18 Unknown History Atorvastatin Calcium [Lipitor] 40 mg PO HS 02/07/18 02/07/18 Unknown History Finasteride [Proscar] 5 mg PO QAM 02/07/18 02/07/18 Unknown History Furosemide [Lasix TAB] 40 mg PO QDAY 02/07/18 02/07/18 Unknown History Metoprolol Succinate [Toprol Xl] 100 mg PO BID 02/07/18 02/07/18 Unknown History Nitroglycerin [Nitrostat] 0.4 mg SL Q5M PRN 02/07/18 02/07/18 Unknown History Potassium Chloride [Klor-Con 10] 10 meq PO DAILY 02/07/18 02/07/18 Unknown History Tamsulosin HCl [Flomax] 0.4 mg PO QPM 02/07/18 02/07/18 Unknown History Active Medications: Generic Name Dose Route Start Last Admin Trade Name Freq PRN Reason Stop Dose Admin Acetaminophen 650 mg 02/07/18 13:10 02/12/18 00:03 Tylenol PO 650 mg Q4H PRN Administration Pain MILD(1-3)/Fever >100.5/COLÓN Albuterol 2.5 mg 02/07/18 13:10 Proventil IH Q4HRT PRN Shortness Of Breath Apixaban 5 mg 02/09/18 22:00 02/12/18 09:25 Eliquis PO 5 mg Q12HR COLBY Administration Protocol Aspirin 81 mg 02/08/18 10:00 02/12/18 09:26 Halfprin Ec PO 81 mg DAILY COLBY Administration Atorvastatin Calcium 40 mg 02/07/18 22:00 02/11/18 21:45 Lipitor PO 40 mg HS COLBY Administration Dextrose 50 ml 02/09/18 15:57 D50w (25gm) Syringe IV PRN PRN Hypoglycemia Finasteride 5 mg 02/08/18 10:00 02/12/18 09:25 Proscar PO 5 mg QAM COLBY Administration Furosemide 40 mg 02/08/18 17:00 02/12/18 09:24 Lasix IV 40 mg QDAY COLBY Administration Sodium Chloride 1,000 mls @ 50 mls/hr 02/10/18 14:00 02/12/18 00:04 Nacl 0.45% 1000 Ml IV 50 mls/hr DIRECT COLBY Administration Insulin Human Lispro 0 unit 02/09/18 16:30 02/12/18 08:12 Humalog SUB-Q Not Given ACHS [facility] Protocol Metoprolol Tartrate 25 mg 02/09/18 14:00 02/12/18 05:44 Lopressor PO Not Given Q8HR COLBY Nitroglycerin 0.4 mg 02/07/18 13:11 Nitrostat SL Q5M PRN Chest Pain Ondansetron HCl 4 mg 02/07/18 13:10 Zofran IV Q8H PRN Nausea And Vomiting Potassium Chloride 10 meq 02/08/18 10:00 02/12/18 09:25 K-Dur PO 10 meq QDAY COLBY Administration Sodium Bicarbonate 1,300 mg 02/11/18 13:00 02/12/18 09:26 Sodium Bicarbonate PO 1,300 mg BID COLBY Administration Sodium Chloride 10 ml 02/07/18 22:00 02/12/18 09:30 Sodium Chloride Flush Syringe 10 Ml IV 10 ml BID COLBY Administration Sodium Chloride 10 ml 02/07/18 13:10 Sodium Chloride Flush Syringe 10 Ml IV PRN PRN LINE FLUSH Tamsulosin HCl 0.4 mg 02/07/18 18:00 02/11/18 17:54 Flomax PO 0.4 mg QPM COLBY Administration
--- NOTE | 2018-02-12 10:47 | Progress Note ---
Addendum entered and electronically signed by JUANJO PÉREZ MD 02/12/18 14:27: I spoke to the patient's primary ip network architect this morning, and obtained the fol lowing history: 1. Patient has a long history of coronary artery disease and multiple coronary interventions including an unprotected left main coronary stent in early 2018. 2. Hypertrophic cardiomyopathy and nonsustained ventricular tachycardia required the implantation of a Medtronic ICD. 3. Permanent atrial fibrillation, currently on a rate control strategy. 4. Medications include Eliquis, aspirin 81 mg, Toprol-XL 100 mg, furosemide 20 mg, potassium 10 mEq, Lipitor 40 mg, Proscar 5 mg, Flomax 0.4 mg. 5. The aortic valve disease was assessed as mild on conservative management. Recommendations: We will proceed with the right and left heart catheterization for further assessment of his coronary artery disease in the setting of an STEMI, and for the assessment of the aortic valve stenosis which appears at least moderate to severe on current echocardiogram. Due to the ongoing oral anticoagulation with Eliquis, we will hold anticoagulation and defer cardiac catheterization for 48 hours Original Note: Assessment and Plan Persistent atrial fibrillation, unknown chronicity rate controlled INR 1.74 on presentation. Unable to confirm if he is on warfarin. initiated on warfarin Anemia s/p blood transfusion Decompensated heart failure, diastolic Presence of AICD Echocardiogram reveals well-preserved left ventricular systolic function, but is asymmetric septal hypertrophy. There is also a moderate degree of mitral valve prolapse, and moderate to severe calcific aortic stenosis. There is marked dilatation of both left and right atria, consistent with a likely long-standing and probably permanent atrial fibrillation. In the setting of these multiple cardiac pathologies and evidence of ICD implant, we will need to review of records of prior cardiac evaluation before considering additional cardiac investigation and treatments. Awaiting records from his primary ip network architect, who is Dr. Jame Houston in [facility]. Subjective Date of service: 02/12/18 Principal diagnosis: raya on ckd Interval history: Awaiting cardiac records from his primary ip network architect office. Stable Afib on tele. Objective Vital Signs Temp Pulse Resp BP Pulse Ox 02/12/18 00:11 98.1 F 137 H 18 96/64 99 02/11/18 20:05 79 02/11/18 19:50 98.2 F 79 18 103/59 100 12/30/18 17:19 98.5 F 100 H 18 131/63 100 02/11/18 14:01 101 H 109/63 02/11/18 12:23 98.2 F 86 18 155/77 100 02/11/18 12:18 98.1 F 101 H 18 109/63 96 - Physical Examination General: No Apparent Distress HEENT: Positive: PERRL Cardiac: Positive: irregularly irregular Neuro: Positive: Grossly Intact Extremities: Absent: edema - Labs and Meds Comprehensive Metabolic Panel 02/12/18 Range/Units 04:50 Sodium 129 L (137-145) mmol/L Potassium 3.7 (3.6-5.0) mmol/L Chloride 94.4 L (98-107) mmol/L Carbon Dioxide 23 (22-30) mmol/L BUN 26 H (9-20) mg/dL Creatinine 1.4 (0.8-1.5) mg/dL Glucose 85 (75-100) mg/dL Calcium 8.3 L (8.4-10.2) mg/dL
[2018-02-12] MEDS: NACL 0.9% 1000 ML 1,000 ML IV SCH (11:50)
--- NOTE | 2018-02-12 13:16 | Progress Note ---
Assessment and Plan Assessment and plan: Patient is a 77 you American speaking man with a history of HTN, HLD, BPH, CHF, Afib with PPM or AICD ([employer]) and CAD S/P Stent placement who presented to [facility] ED with CP and SOB. He was found to be in afib with RVR, most likely because he ran out of his Metoprolol. He was treated with rate control medications after which his heart rate improved. He has been having chest pain and had an elevation in troponins. He was seen by cardiology, cardiology was leading to get his records from his avionics systems engineer up in [facility]. Dr. Reyes spoke to his avionics systems engineer early this morning and patient has extensive history and will require cardiac cath. Nephrology is comanaging to minimize any renal damage from contrast with the cardiac cath. -The patient received 1 unit of packed red blood cells for anemia. There were no signs of bleeding. -The patient is planned for a cath in 48 hours, eliquis is being held. -he also had a VQ scan that was negative for PE. -At this points were waiting 48 hours sp last eliquis dose to do a cardiac cath Diagnoses Chest pain A. fib with RVR Hypercoagulable states Dilated cardiomyopathy, status post ICD Microcytic anemia requiring transfusion Coagulopathy, iatrogenic due to eliquis History Interval history: Review of systems Constitutional: No fevers, no malaise, no joint pains CVS: No chest pain, no orthopnea, no dyspnea on exertion, no pedal edema GI: No abdominal pain, no diarrhea, no vomiting, no constipation Respiratory: No shortness of breath, no wheezing, no coughing Hospitalist Physical - Physical exam Narrative exam: General.: Appears well, no distress, nontoxic HEENT: Moist mucous membranes, extraocular muscles intact, no lymphadenopathy Neck: supple Cardiac: S1-S2 heard Lungs: clear to auscultation bilaterally Abdomen: soft , nontender, nondistended, bowel sounds positive Extremities: no edema clubbing or cyanosis Skin: no rash or lesions Neurologic: no gross focal deficits Psych: appropriate behavior, appropriate mood, corporative, judgment intact - Constitutional Vitals: Temp Pulse Resp BP Pulse Ox 98.3 F 104 H 20 103/59 98 02/12/18 11:25 02/12/18 11:25 02/12/18 11:25 02/12/18 11:25 02/12/18 11:25 General appearance: Absent: mild distress Results - Labs CBC & Chem 7: 02/11/18 06:18 02/12/18 04:50 Labs: Laboratory Last Values WBC 4.4 K/mm3 (4.5-11.0) L 02/11/18 06:18 RBC 4.42 M/mm3 (3.65-5.03) 02/11/18 06:18 Hgb 10.7 gm/dl (11.8-15.2) L 02/11/18 06:18 Hct 34.3 % (35.5-45.6) L 02/11/18 06:18 MCV 78 fl (84-94) L 02/11/18 06:18 MCH 24 pg (28-32) L 02/11/18 06:18 MCHC 31 % (32-34) L 02/11/18 06:18 RDW 22.8 % (13.2-15.2) H 02/11/18 06:18 Plt Count 186 K/mm3 (140-440) 02/11/18 06:18 Lymph % (Auto) 24.4 % (13.4-35.0) 02/07/18 11:05 [place] % (Auto) 6.8 % (0.0-7.3) 02/07/18 11:05 Eos % (Auto) 0.9 % (0.0-4.3) 02/07/18 11:05 Baso % (Auto) 0.5 % (0.0-1.8) 02/07/18 11:05 Lymph # 1.3 K/mm3 (1.2-5.4) 02/07/18 11:05 [place] # 0.4 K/mm3 (0.0-0.8) 02/07/18 11:05 Eos # 0.0 K/mm3 (0.0-0.4) 02/07/18 11:05 Baso # 0.0 K/mm3 (0.0-0.1) 02/07/18 11:05 Seg Neutrophils % 67.4 % (40.0-70.0) 02/07/18 11:05 Seg Neutrophils # 3.7 K/mm3 (1.8-7.7) 02/07/18 11:05 PT 20.8 Sec. (12.2-14.9) H 02/08/18 10:43 INR 1.74 (0.87-1.13) H 02/08/18 10:43 APTT 32.2 Sec. (24.2-36.6) 02/08/18 10:43 D-Dimer 605.22 ng/mlDDU (0-234) H 02/07/18 13:09 Heparin Anti-Xa Level 2.00 U.I./ml (0.3-0.7) H 02/09/18 04:49 Sodium 129 mmol/L (137-145) L 02/12/18 04:50 Potassium 3.7 mmol/L (3.6-5.0) 02/12/18 04:50 Chloride 94.4 mmol/L (98-107) L 02/12/18 04:50 Carbon Dioxide 23 mmol/L (22-30) 02/12/18 04:50 Anion Gap 15 mmol/L 02/12/18 04:50 BUN 26 mg/dL (9-20) H 02/12/18 04:50 Creatinine 1.4 mg/dL (0.8-1.5) 02/12/18 04:50 Estimated GFR 49 ml/min 02/12/18 04:50 BUN/Creatinine Ratio 19 % 02/12/18 04:50 Glucose 85 mg/dL (75-100) 02/12/18 04:50 POC Glucose 83 (70-105) 02/12/18 05:33 Hemoglobin A1c 6.2 % (4-6) H 02/09/18 04:49 Calcium 8.3 mg/dL (8.4-10.2) L 02/12/18 04:50 Magnesium 2.00 mg/dL (1.7-2.3) 02/09/18 04:49 Iron 34 ug/dL (49-181) L 02/08/18 17:51 TIBC 406 mcg/dL (250-450) 02/08/18 17:51 Ferritin 23.1 ng/mL (13.0-400.0) 02/08/18 17:51 Total Bilirubin 0.60 mg/dL (0.1-1.2) 02/07/18 11:07 AST 22 units/L (5-40) 02/07/18 11:07 ALT 7 units/L (7-56) 02/07/18 11:07 Alkaline Phosphatase 133 units/L (35-129) H 02/07/18 11:07 Total Creatine Kinase 384 units/L (55-170) H 02/08/18 17:47 CK-MB (CK-2) 15.1 ng/mL (0.0-4.0) H 02/08/18 17:47 CK-MB (CK-2) Rel Index 3.9 (0-4) 02/08/18 17:47 Troponin T 2.350 ng/mL (0.00-0.029) H* D 02/08/18 17:47 NT-Pro-B Natriuret Pep 7151 pg/mL (0-900) H 02/07/18 11:07 Total Protein 7.6 g/dL (6.3-8.2) 02/07/18 11:07 Albumin 3.5 g/dL (3.9-5) L 02/07/18 11:07 Albumin/Globulin Ratio 0.9 % 02/07/18 11:07 Triglycerides 79 mg/dL (2-149) 02/07/18 11:07 Cholesterol 99 mg/dL (50-199) 02/07/18 11:07 LDL Cholesterol Direct 61 mg/dL (50-130) 02/07/18 11:07 HDL Cholesterol 35 mg/dL (40-59) L 02/07/18 11:07 Cholesterol/HDL Ratio 2.82 % 02/07/18 11:07 TSH 2.090 mlU/mL (0.270-4.200) 02/09/18 04:49 Free T4 1.28 ng/dL (0.76-1.46) 02/08/18 06:44 Urine Color Straw (Yellow) 02/11/18 Unknown Urine Turbidity Clear (Clear) 02/11/18 Unknown Urine pH 5.0 (5.0-7.0) 02/11/18 Unknown Ur Specific [place] 1.005 (1.003-1.030) 02/11/18 Unknown Urine Protein <15 mg/dl mg/dL (Negative) 02/11/18 Unknown Urine Glucose (UA) Neg mg/dL (Negative) 02/11/18 Unknown Urine Ketones Neg mg/dL (Negative) 02/11/18 Unknown Urine Blood Mod (Negative) 02/11/18 Unknown Urine Nitrite Neg (Negative) 02/11/18 Unknown Urine Bilirubin Neg (Negative) 02/11/18 Unknown Urine Urobilinogen < 2.0 mg/dL (<2.0) 02/11/18 Unknown Ur Leukocyte Esterase Neg (Negative) 02/11/18 Unknown Urine WBC (Auto) < 1.0 /HPF (0.0-6.0) 02/11/18 Unknown Urine RBC (Auto) 24.0 /HPF (0.0-6.0) 02/11/18 Unknown Urine Eosinophils None seen (None Seen) 02/11/18 Unknown Blood Type A POSITIVE 02/07/18 12:03 Antibody Screen Negative 02/07/18 12:03 Crossmatch See Detail 02/07/18 12:03
--- NOTE | 2018-02-12 14:33 | Event Note ---
Date: 02/12/18 I spoke to the patient's primary casing machine operator this morning, and obtained the following history: 1. Patient has a long history of coronary artery disease and multiple coronary interventions including an unprotected left main coronary stent in early 2018. 2. Hypertrophic cardiomyopathy and nonsustained ventricular tachycardia requi red the implantation of a Medtronic ICD. 3. Permanent atrial fibrillation, currently on a rate control strategy. 4. Medications include Eliquis, aspirin 81 mg, Toprol-XL 100 mg, furosemide 20 mg, potassium 10 mEq, Lipitor 40 mg, Proscar 5 mg, Flomax 0.4 mg. 5. The aortic valve disease was assessed as mild on conservative management. Recommendations: We will proceed with the right and left heart catheterization for further assessment of his coronary artery disease in the setting of an STEMI, and for the assessment of the aortic valve stenosis which appears at least moderate to severe on current echocardiogram. Due to the ongoing oral anticoagulation with Eliquis, we will hold anticoagulation and defer cardiac catheterization for 48 hours
[2018-02-12] MEDS: FLOMAX PO SCH (17:31)
[2018-02-13] MEDS: TYLENOL PO PRN (04:48)
[2018-02-13] MEDS: LOPRESSOR PO SCH ×3 (06:36→22:12)
[2018-02-13] MEDS: NACL 0.9% 1000 ML 1,000 ML IV SCH (06:44)
[2018-02-13 07:30] LABS: Calcium 8.3 mg/dL (8.4-10.2)
[2018-02-13] MEDS: HumaLOG SUB-Q SCH ×4 (08:00→22:10)
[2018-02-13] MEDS: LASIX IV SCH (12:21)
[2018-02-13] MEDS: K-DUR PO SCH (12:21)
[2018-02-13] MEDS: SODIUM BICARBONATE PO SCH ×2 (12:21→22:12)
[2018-02-13] MEDS: HALFPRIN EC PO SCH (12:22)
[2018-02-13] MEDS: PROSCAR PO SCH (12:22)
[2018-02-13] MEDS: SODIUM CHLORIDE FLUSH SYRINGE 10 ML IV SCH ×2 (12:23→22:12)
--- NOTE | 2018-02-13 14:05 | Progress Note ---
Assessment and Plan - Patient Problems (1) ACS (acute coronary syndrome) Current Visit: Yes Status: Acute Plan to address problem: Patient has a complex history of coronary artery disease, presented with a non- ST elevation myocardial infarction. In addition, he has at least moderate to severe calcific aortic stenosis. A right and left heart catheterization is planned, the patient's current oral anticoagulation therapy is on hold pending cardiac catheterization. Subjective Date of service: 02/13/18 Principal diagnosis: raya on ckd Interval history: Patient is comfortable, no new cardiac complaints. Objective Vital Signs Temp Pulse Resp Resp BP BP Pulse Ox 02/13/18 11:33 98 H 18 111/68 97 02/13/18 11:32 98.0 F 02/13/18 08:04 98.1 F 92 H 20 131/77 97 02/13/18 06:36 81 101/56 02/13/18 04:48 17 02/13/18 04:41 98.6 F 106 H 20 130/77 95 02/13/18 04:30 83 02/13/18 00:23 98.7 F 98 H 20 111/67 96 02/12/18 21:08 17 98 02/12/18 20:17 98.1 F 121 H 20 109/66 97 02/12/18 20:00 111 H 02/12/18 16:25 98.6 F 67 20 137/76 95 02/12/18 14:35 124 H 103/59 - Physical Examination General: No Apparent Distress HEENT: Positive: PERRL Neck: Positive: neck supple Cardiac: Positive: Reg Rate and Rhythm Lungs: Positive: Decreased Breath Sounds Neuro: Positive: Grossly Intact Abdomen: Positive: Soft Skin: Positive: Clear Extremities: Absent: edema - Labs and Meds Comprehensive Metabolic Panel 02/13/18 Range/Units 06:37 Sodium 135 L (137-145) mmol/L Potassium 3.9 (3.6-5.0) mmol/L Chloride 98.8 (98-107) mmol/L Carbon Dioxide 22 (22-30) mmol/L BUN 25 H (9-20) mg/dL Creatinine 1.5 (0.8-1.5) mg/dL Glucose 80 (75-100) mg/dL Calcium 8.3 L (8.4-10.2) mg/dL
--- NOTE | 2018-02-13 14:08 | Progress Note ---
Assessment and Plan Assessment and plan: davidson is a 77 you Maltese speaking man with a history of HTN, HLD, BPH, CHF, Afib with PPM or AICD ([employer] [facility]) and CAD S/P Stent placement who presented to [facility] ED with CP and SOB. He was found to be in afib with RVR, most likely because he ran out of his Metoprolol. He was treated with rate control medications after which his heart rate improved. He has been having chest pain and had an elevation in troponins. He was seen by cardiology, cardiology was leading to get his records from his office assistance up in [facility]. Dr. Reyes spoke to his office assistance early this morning and patient has extensive history and will require cardiac cath. Nephrology is comanaging to minimize any renal damage from contrast with the cardiac cath. -The patient received 1 unit of packed red blood cells for anemia. There were no signs of bleeding. -The patient is planned for a cath in 48 hours, eliquis is being held. -he also had a VQ scan that was negative for PE. -At this points were waiting 48 hours sp last eliquis dose to do a cardiac cath -NSTEMI: Medical management per cardiology, awaiting records from his office assistance. Patient is planned for cath in AM -Acute on Chronic diastolic heart failure patient has dilated cardiomyopathy status post ICD: Medical management -ARF (acute renal failure) with tubular necrosis: Nephrology input appreciated, hydrating and avoiding nephrotoxins, as patient may need cardiac cath -Anemia, microcytic s/p 1 unit prbc, no signs of bleeding: follow up FOBT, iron study, and ferritin, likely due to anemia of chronic disease -Atrial fibrillation with RVR and hypercoagulable states: Continue rate control medications, continue eliquis -Elevated D-Dimer: V/Q scan low probability with low suspicion Pneumonia ruled out, infiltrates were due to CHF Coagulopathy, iatrogenic due to eliquis DVT prophylaxis: Full anticoagulated full code Plan discussed with cardiology AND PATIENT WITH FAMILY History Interval history: Patient seen and examined today, no new complaints. Family at bedside, awaiting planned cardiac cath. Discussed with Nursing staff. No new adverse event reported to me from overnight Review of systems Constitutional: No fevers, no malaise, no joint pains CVS: No chest pain, no orthopnea, no dyspnea on exertion, no pedal edema GI: No abdominal pain, no diarrhea, no vomiting, no constipation Respiratory: No shortness of breath, no wheezing, no coughing Hospitalist Physical - Physical exam Narrative exam: General.: Appears well, no distress, nontoxic HEENT: Moist mucous membranes, extraocular muscles intact, no lymphadenopathy Neck: supple Cardiac: S1-S2 heard Lungs: clear to auscultation bilaterally Abdomen: soft , nontender, nondistended, bowel sounds positive Extremities: no edema clubbing or cyanosis Skin: no rash or lesions. right chest wall pacemaker noted Neurologic: no gross focal deficits Psych: appropriate behavior, appropriate mood, corporative, judgment intact - Constitutional Vitals: Temp Pulse Resp BP Pulse Ox 98.0 F 98 H 18 111/68 97 02/13/18 11:32 02/13/18 11:33 02/13/18 11:33 02/13/18 11:33 02/13/18 11:33 General appearance: Absent: mild distress Results - Labs CBC & Chem 7: 02/11/18 06:18 02/13/18 06:37 Labs: Laboratory Last Values WBC 4.4 K/mm3 (4.5-11.0) L 02/11/18 06:18 RBC 4.42 M/mm3 (3.65-5.03) 02/11/18 06:18 Hgb 10.7 gm/dl (11.8-15.2) L 02/11/18 06:18 Hct 34.3 % (35.5-45.6) L 02/11/18 06:18 MCV 78 fl (84-94) L 02/11/18 06:18 MCH 24 pg (28-32) L 02/11/18 06:18 MCHC 31 % (32-34) L 02/11/18 06:18 RDW 22.8 % (13.2-15.2) H 02/11/18 06:18 Plt Count 186 K/mm3 (140-440) 02/11/18 06:18 Lymph % (Auto) 24.4 % (13.4-35.0) 02/07/18 11:05 [place] % (Auto) 6.8 % (0.0-7.3) 02/07/18 11:05 Eos % (Auto) 0.9 % (0.0-4.3) 02/07/18 11:05 Baso % (Auto) 0.5 % (0.0-1.8) 02/07/18 11:05 Lymph # 1.3 K/mm3 (1.2-5.4) 02/07/18 11:05 [place] # 0.4 K/mm3 (0.0-0.8) 02/07/18 11:05 Eos # 0.0 K/mm3 (0.0-0.4) 02/07/18 11:05 Baso # 0.0 K/mm3 (0.0-0.1) 02/07/18 11:05 Seg Neutrophils % 67.4 % (40.0-70.0) 02/07/18 11:05 Seg Neutrophils # 3.7 K/mm3 (1.8-7.7) 02/07/18 11:05 PT 20.8 Sec. (12.2-14.9) H 02/08/18 10:43 INR 1.74 (0.87-1.13) H 02/08/18 10:43 APTT 32.2 Sec. (24.2-36.6) 02/08/18 10:43 D-Dimer 605.22 ng/mlDDU (0-234) H 02/07/18 13:09 Heparin Anti-Xa Level 2.00 U.I./ml (0.3-0.7) H 02/09/18 04:49 Sodium 135 mmol/L (137-145) L 02/13/18 06:37 Potassium 3.9 mmol/L (3.6-5.0) 02/13/18 06:37 Chloride 98.8 mmol/L (98-107) 02/13/18 06:37 Carbon Dioxide 22 mmol/L (22-30) 02/13/18 06:37 Anion Gap 18 mmol/L 02/13/18 06:37 BUN 25 mg/dL (9-20) H 02/13/18 06:37 Creatinine 1.5 mg/dL (0.8-1.5) 02/13/18 06:37 Estimated GFR 45 ml/min 02/13/18 06:37 BUN/Creatinine Ratio 17 % 02/13/18 06:37 Glucose 80 mg/dL (75-100) 02/13/18 06:37 POC Glucose 94 (70-105) 02/12/18 22:37 Hemoglobin A1c 6.2 % (4-6) H 02/09/18 04:49 Calcium 8.3 mg/dL (8.4-10.2) L 02/13/18 06:37 Magnesium 2.00 mg/dL (1.7-2.3) 02/09/18 04:49 Iron 34 ug/dL (49-181) L 02/08/18 17:51 TIBC 406 mcg/dL (250-450) 02/08/18 17:51 Ferritin 23.1 ng/mL (13.0-400.0) 02/08/18 17:51 Total Bilirubin 0.60 mg/dL (0.1-1.2) 02/07/18 11:07 AST 22 units/L (5-40) 02/07/18 11:07 ALT 7 units/L (7-56) 02/07/18 11:07 Alkaline Phosphatase 133 units/L (35-129) H 02/07/18 11:07 Total Creatine Kinase 384 units/L (55-170) H 02/08/18 17:47 CK-MB (CK-2) 15.1 ng/mL (0.0-4.0) H 02/08/18 17:47 CK-MB (CK-2) Rel Index 3.9 (0-4) 02/08/18 17:47 Troponin T 2.350 ng/mL (0.00-0.029) H* D 02/08/18 17:47 NT-Pro-B Natriuret Pep 7151 pg/mL (0-900) H 02/07/18 11:07 Total Protein 7.6 g/dL (6.3-8.2) 02/07/18 11:07 Albumin 3.5 g/dL (3.9-5) L 02/07/18 11:07 Albumin/Globulin Ratio 0.9 % 02/07/18 11:07 Triglycerides 79 mg/dL (2-149) 02/07/18 11:07 Cholesterol 99 mg/dL (50-199) 02/07/18 11:07 LDL Cholesterol Direct 61 mg/dL (50-130) 02/07/18 11:07 HDL Cholesterol 35 mg/dL (40-59) L 02/07/18 11:07 Cholesterol/HDL Ratio 2.82 % 02/07/18 11:07 TSH 2.090 mlU/mL (0.270-4.200) 02/09/18 04:49 Free T4 1.28 ng/dL (0.76-1.46) 02/08/18 06:44 Urine Color Straw (Yellow) 02/11/18 Unknown Urine Turbidity Clear (Clear) 02/11/18 Unknown Urine pH 5.0 (5.0-7.0) 02/11/18 Unknown Ur Specific [place] 1.005 (1.003-1.030) 02/11/18 Unknown Urine Protein <15 mg/dl mg/dL (Negative) 02/11/18 Unknown Urine Glucose (UA) Neg mg/dL (Negative) 02/11/18 Unknown Urine Ketones Neg mg/dL (Negative) 02/11/18 Unknown Urine Blood Mod (Negative) 02/11/18 Unknown Urine Nitrite Neg (Negative) 02/11/18 Unknown Urine Bilirubin Neg (Negative) 02/11/18 Unknown Urine Urobilinogen < 2.0 mg/dL (<2.0) 02/11/18 Unknown Ur Leukocyte Esterase Neg (Negative) 02/11/18 Unknown Urine WBC (Auto) < 1.0 /HPF (0.0-6.0) 02/11/18 Unknown Urine RBC (Auto) 24.0 /HPF (0.0-6.0) 02/11/18 Unknown Urine Eosinophils None seen (None Seen) 02/11/18 Unknown Blood Type A POSITIVE 02/07/18 12:03 Antibody Screen Negative 02/07/18 12:03 Crossmatch See Detail 02/07/18 12:03
--- NOTE | 2018-02-13 14:42 | Progress Note ---
Assessment and Plan Impression: * MIRZA on chronic kidney disease --Renal u/s: right 9.1cm, left 10.1cm; scattered renal cysts; parenchymal disease --UA: +blood, negative protein * NSTEMI * Afib with RVR * Acute on chronic diastolic heart failure * PNA * Anemia * Microscopic hematuria Plan: * Renal function is stable - SCr 1.5mg/dL today * Continue to hold ACEi for now * Continue PO sodium bicarbonate * Note plans for LHC/RHC - stable for LHC from a renal standpoint * Strict I/O * Avoid potential nephrotoxic agents Subjective Date of service: 02/13/18 Principal diagnosis: mirza on ckd Interval history: No acute events overnight. Objective - Vital Signs Vital signs: Vital Signs - 12hr 02/13/18 02/13/18 02/13/18 04:30 04:41 04:48 Temperature 98.6 F Pulse Rate 83 106 H Respiratory 20 17 Rate Blood Pressure 130/77 O2 Sat by Pulse 95 Oximetry 02/13/18 02/13/18 02/13/18 06:36 08:04 11:32 Temperature 98.1 F 98.0 F Pulse Rate 81 92 H Respiratory 20 Rate Blood Pressure 101/56 131/77 O2 Sat by Pulse 97 Oximetry 02/13/18 11:33 Temperature Pulse Rate 98 H Respiratory 18 Rate Blood Pressure 111/68 O2 Sat by Pulse 97 Oximetry - General Appearance General appearance: well-developed, well-nourished EENT: ATNC Respiratory: Present: Clear to Ascultation Cardiology: regular, S1S2 Gastrointestinal: normal, no tenderness, no distended Integumentary: warm and dry Musculoskeletal: other (no edema) Psychiatric: cooperative - Lab 02/14/18 04:45 02/14/18 04:45 Most recent lab results Calcium 8.3 mg/dL (8.4-10.2) L 02/13/18 06:37 Magnesium 2.00 mg/dL (1.7-2.3) 02/09/18 04:49 Medications & Allergies - Medications Allergies/Adverse Reactions: Allergies No Known Allergies Allergy (Verified 02/07/18 10:58) Home Medications: Home Medications Medication Instructions Recorded Confirmed Last Taken Type Aspirin [Adult Aspirin] 81 mg PO DAILY 02/07/18 02/07/18 Unknown History Atorvastatin Calcium [Lipitor] 40 mg PO HS 02/07/18 02/07/18 Unknown History Finasteride [Proscar] 5 mg PO QAM 02/07/18 02/07/18 Unknown History Furosemide [Lasix TAB] 40 mg PO QDAY 02/07/18 02/07/18 Unknown History Metoprolol Succinate [Toprol Xl] 100 mg PO BID 02/07/18 02/07/18 Unknown History Nitroglycerin [Nitrostat] 0.4 mg SL Q5M PRN 02/07/18 02/07/18 Unknown History Potassium Chloride [Klor-Con 10] 10 meq PO DAILY 02/07/18 02/07/18 Unknown History Tamsulosin HCl [Flomax] 0.4 mg PO QPM 02/07/18 02/07/18 Unknown History Active Medications: Generic Name Dose Route Start Last Admin Trade Name Freq PRN Reason Stop Dose Admin Acetaminophen 650 mg 02/07/18 13:10 02/13/18 04:48 Tylenol PO 650 mg Q4H PRN Administration Pain MILD(1-3)/Fever >100.5/COLÓN Albuterol 2.5 mg 02/07/18 13:10 Proventil IH Q4HRT PRN Shortness Of Breath Aspirin 81 mg 02/08/18 10:00 02/13/18 12:22 Halfprin Ec PO 81 mg DAILY COLBY Administration Atorvastatin Calcium 40 mg 02/07/18 22:00 02/12/18 21:41 Lipitor PO 40 mg HS COLBY Administration Dextrose 50 ml 02/09/18 15:57 D50w (25gm) Syringe IV PRN PRN Hypoglycemia Finasteride 5 mg 02/08/18 10:00 02/13/18 12:22 Proscar PO 5 mg QAM COLBY Administration Furosemide 40 mg 02/08/18 17:00 02/13/18 12:21 Lasix IV 40 mg QDAY COLBY Administration Sodium Chloride 1,000 mls @ 50 mls/hr 02/12/18 12:00 02/13/18 06:44 Nacl 0.9% 1000 Ml IV 50 mls/hr DIRECT COLBY Administration Insulin Human Lispro 0 unit 02/09/18 16:30 02/12/18 23:00 Humalog SUB-Q Not Given ACHS COLBY Protocol Metoprolol Tartrate 25 mg 02/09/18 14:00 02/13/18 06:36 Lopressor PO Not Given Q8HR COLBY Nitroglycerin 0.4 mg 02/07/18 13:11 Nitrostat SL Q5M PRN Chest Pain Ondansetron HCl 4 mg 02/07/18 13:10 Zofran IV Q8H PRN Nausea And Vomiting Potassium Chloride 10 meq 02/08/18 10:00 02/13/18 12:21 K-Dur PO 10 meq QDAY COLBY Administration Sodium Bicarbonate 1,300 mg 02/11/18 13:00 02/13/18 12:21 Sodium Bicarbonate PO 1,300 mg BID COLBY Administration Sodium Chloride 10 ml 02/07/18 22:00 02/13/18 12:23 Sodium Chloride Flush Syringe 10 Ml IV 10 ml BID COLBY Administration Sodium Chloride 10 ml 02/07/18 13:10 Sodium Chloride Flush Syringe 10 Ml IV PRN PRN LINE FLUSH Tamsulosin HCl 0.4 mg 02/07/18 18:00 02/12/18 17:31 Flomax PO 0.4 mg QPM COLBY Administration
[2018-02-13] MEDS ORDERED: NACL 0.9% 500 ML 500 ML IV SCH (16:00)
[2018-02-13] MEDS: FLOMAX PO SCH (17:07)
[2018-02-14] MEDS: NACL 0.9% 1000 ML 1,000 ML IV SCH ×2 (01:49→13:24)
[2018-02-14 05:05] LABS: Hematocrit 29.9 % (35.5-45.6); Hemoglobin 9.6 gm/dl (11.8-15.2); Mean Corpuscular HGB Conc 32 % (32-34); Mean Corpuscular Volume 76 fl (84-94); Platelet Count 170 K/mm3 (140-440); Red Blood Count 3.93 M/mm3 (3.65-5.03)
[2018-02-14 05:09] LABS: Red Cell Distribution Width 23.4 % (13.2-15.2)
[2018-02-14] MEDS: LOPRESSOR PO SCH ×4 (05:14→21:45)
[2018-02-14 05:16] LABS: INR 1.22 (0.87-1.13)
[2018-02-14 05:19] LABS: Calcium 8.4 mg/dL (8.4-10.2)
[2018-02-14] MEDS: HumaLOG SUB-Q SCH ×4 (07:30→22:32)
--- NOTE | 2018-02-14 08:54 | Progress Note ---
Assessment and Plan Impression: * MIRZA on chronic kidney disease --Renal u/s: right 9.1cm, left 10.1cm; scattered renal cysts; parenchymal disease --UA: +blood, negative protein * NSTEMI * Afib with RVR * Acute on chronic diastolic heart failure * PNA * Anemia * Microscopic hematuria Plan: * Renal function is stable - SCr 1.4mg/dL today * Continue to hold ACEi for now * Continue PO sodium bicarbonate * Note plans for LHC/RHC - stable for LHC from a renal standpoint * Strict I/O * Avoid potential nephrotoxic agents * Risk of contrast nephropathy explained to patient and family at bedside. * Continue gentle hydration Subjective Date of service: 02/14/18 Principal diagnosis: mirza on ckd Interval history: Patient is comfortable today. Denies any chest pain or shortness of breath. No nausea or vomiting. Objective - Vital Signs Vital signs: Vital Signs - 12hr 02/13/18 02/13/18 02/13/18 22:12 22:55 23:39 Temperature 98.3 F Pulse Rate 92 H 96 H Pulse Rate [ 92 H Apical] Respiratory 18 20 Rate Blood Pressure 105/59 105/61 O2 Sat by Pulse 96 92 Oximetry 02/14/18 02/14/18 04:24 05:14 Temperature 98.2 F Pulse Rate 92 H 92 H Pulse Rate [ Apical] Respiratory 20 Rate Blood Pressure 106/58 106/58 O2 Sat by Pulse 98 Oximetry - General Appearance General appearance: well-developed, well-nourished, appears stated age EENT: PERRL, mucous membranes moist Neck: no JVD, no thyromegaly, no carotid bruit, supple Respiratory: Present: Clear to Ascultation Cardiology: irregularly irregular, S1S2, no murmurs Gastrointestinal: normal, normoactive bowel sounds Integumentary: other (no edema) - Lab 02/14/18 04:45 02/14/18 04:45 Most recent lab results Calcium 8.4 mg/dL (8.4-10.2) 02/14/18 04:45 Magnesium 2.00 mg/dL (1.7-2.3) 02/09/18 04:49 Medications & Allergies - Medications Allergies/Adverse Reactions: Allergies No Known Allergies Allergy (Verified 02/07/18 10:58) Home Medications: Home Medications Medication Instructions Recorded Confirmed Last Taken Type Aspirin [Adult Aspirin] 81 mg PO DAILY 02/07/18 02/07/18 Unknown History Atorvastatin Calcium [Lipitor] 40 mg PO HS 02/07/18 02/07/18 Unknown History Finasteride [Proscar] 5 mg PO QAM 02/07/18 02/07/18 Unknown History Furosemide [Lasix TAB] 40 mg PO QDAY 02/07/18 02/07/18 Unknown History Metoprolol Succinate [Toprol Xl] 100 mg PO BID 02/07/18 02/07/18 Unknown History Nitroglycerin [Nitrostat] 0.4 mg SL Q5M PRN 02/07/18 02/07/18 Unknown History Potassium Chloride [Klor-Con 10] 10 meq PO DAILY 02/07/18 02/07/18 Unknown History Tamsulosin HCl [Flomax] 0.4 mg PO QPM 02/07/18 02/07/18 Unknown History Active Medications: Generic Name Dose Route Start Last Admin Trade Name Freq PRN Reason Stop Dose Admin Acetaminophen 650 mg 02/07/18 13:10 02/13/18 04:48 Tylenol PO 650 mg Q4H PRN Administration Pain MILD(1-3)/Fever >100.5/COLÓN Albuterol 2.5 mg 02/07/18 13:10 Proventil IH Q4HRT PRN Shortness Of Breath Aspirin 81 mg 02/08/18 10:00 02/13/18 12:22 Halfprin Ec PO 81 mg DAILY COLBY Administration Atorvastatin Calcium 40 mg 02/07/18 22:00 02/13/18 22:12 Lipitor PO 40 mg HS COLBY Administration Dextrose 50 ml 02/09/18 15:57 D50w (25gm) Syringe IV PRN PRN Hypoglycemia Finasteride 5 mg 02/08/18 10:00 02/13/18 12:22 Proscar PO 5 mg QAM COLBY Administration Furosemide 40 mg 02/08/18 17:00 02/13/18 12:21 Lasix IV 40 mg QDAY COLBY Administration Sodium Chloride 1,000 mls @ 50 mls/hr 02/12/18 12:00 02/14/18 01:49 Nacl 0.9% 1000 Ml IV 50 mls/hr DIRECT COLBY Administration Insulin Human Lispro 0 unit 02/09/18 16:30 02/13/18 22:10 Humalog SUB-Q Not Given ACHS [facility] Protocol Metoprolol Tartrate 25 mg 02/09/18 14:00 02/14/18 05:14 Lopressor PO Not Given Q8HR [facility] Nitroglycerin 0.4 mg 02/07/18 13:11 Nitrostat SL Q5M PRN Chest Pain Ondansetron HCl 4 mg 02/07/18 13:10 Zofran IV Q8H PRN Nausea And Vomiting Potassium Chloride 10 meq 02/08/18 10:00 02/13/18 12:21 K-Dur PO 10 meq QDAY COLBY Administration Sodium Bicarbonate 1,300 mg 02/11/18 13:00 02/13/18 22:12 Sodium Bicarbonate PO 1,300 mg BID COLBY Administration Sodium Chloride 10 ml 02/07/18 22:00 02/13/18 22:12 Sodium Chloride Flush Syringe 10 Ml IV 10 ml BID COLBY Administration Sodium Chloride 10 ml 02/07/18 13:10 Sodium Chloride Flush Syringe 10 Ml IV PRN PRN LINE FLUSH Tamsulosin HCl 0.4 mg 02/07/18 18:00 02/13/18 17:07 Flomax PO 0.4 mg QPM COLBY Administration
--- NOTE | 2018-02-14 10:12 | Progress Note ---
Addendum entered and electronically signed by JUANJO PÉREZ MD 02/14/18 14:14: Right and left heart catheterization demonstrated moderate to severe pulmonary h ypertension, normal left ventricular systolic function, ejection fraction 60- 65%, no significant aortic stenosis, and patent left main, LAD and circumflex artery stents. Recommend medical therapy and risk factor modification. Oral anticoagulation will be resumed, and the patient is stable for cardiac discharge tomorrow. Original Note: Assessment and Plan Permanent atrial fibrillation rate controlled on eliquis as an outpatient; currently on hold for cardiac cath. NSTEMI Acute renal failure Anemia s/p blood transfusion Decompensated heart failure, diastolic Hx of hypertrophy cardiomyopathy Presence of AICD ([employer]) Hx of CAD Echocardiogram reveals well-preserved left ventricular systolic function, but is asymmetric septal hypertrophy. There is also a moderate degree of mitral valve prolapse, and moderate to severe calcific aortic stenosis. There is marked dilatation of both left and right atria, consistent with a likely long-standing and probably permanent atrial fibrillation. Recommendations: We will proceed with the right and left heart catheterization tomorrow, for further assessment of his coronary artery disease in the setting of an STEMI, and for the assessment of the aortic valve stenosis which appears at least moderate to severe on current echocardiogram. Subjective Date of service: 02/14/18 Principal diagnosis: raya on ckd Interval history: Stable Afib on tele. Objective Vital Signs Temp Pulse Pulse Resp BP Pulse Ox 02/14/18 09:16 98.1 F 93 H 22 120/65 97 02/14/18 05:14 92 H 106/58 02/14/18 04:24 98.2 F 92 H 20 106/58 98 02/13/18 23:39 98.3 F 96 H 20 105/61 92 02/13/18 22:55 92 H 18 96 02/13/18 22:12 92 H 105/59 02/13/18 20:08 98.8 F 92 H 20 105/59 96 02/13/18 19:04 86 02/13/18 17:44 97.5 F L 02/13/18 17:42 101 H 18 115/57 100 02/13/18 15:24 74 02/13/18 12:00 70 02/13/18 11:33 98 H 18 111/68 97 02/13/18 11:32 98.0 F - Physical Examination General: No Apparent Distress HEENT: Positive: PERRL Cardiac: Positive: irregularly irregular Lungs: Positive: Decreased Breath Sounds Neuro: Positive: Grossly Intact Abdomen: Positive: Soft Extremities: Absent: edema - Labs and Meds Coagulation 02/14/18 Range/Units 04:45 PT 15.8 H (12.2-14.9) Sec. INR 1.22 H (0.87-1.13) CBC 02/14/18 Range/Units 04:45 WBC 4.0 L (4.5-11.0) K/mm3 RBC 3.93 (3.65-5.03) M/mm3 Hgb 9.6 L (11.8-15.2) gm/dl Hct 29.9 L (35.5-45.6) % Plt Count 170 (140-440) K/mm3 Comprehensive Metabolic Panel 02/14/18 Range/Units 04:45 Sodium 138 (137-145) mmol/L Potassium 3.9 (3.6-5.0) mmol/L Chloride 101.7 (98-107) mmol/L Carbon Dioxide 24 (22-30) mmol/L BUN 25 H (9-20) mg/dL Creatinine 1.4 (0.8-1.5) mg/dL Glucose 87 (75-100) mg/dL Calcium 8.4 (8.4-10.2) mg/dL
--- NOTE | 2018-02-14 12:09 | Progress Note ---
Assessment and Plan Assessment and plan: davidson is a 77 you [place] speaking man with a history of HTN, HLD, BPH, CHF, Afib with PPM or AICD ([facility]) and CAD S/P Stent placement who presented to [facility] ED with CP and SOB. He was found to be in afib with RVR, most likely because he ran out of his Metoprolol. He was treated with rate control medications after which his heart rate improved. He has been having chest pain and had an elevation in troponins. He was seen by cardiology, cardiology was leading to get his records from his online marketing manager up in [facility]. Dr. Reyes spoke to his online marketing manager early this morning and patient has extensive history and will require cardiac cath. Nephrology is comanaging to minimize any renal damage from contrast with the cardiac cath. -The patient received 1 unit of packed red blood cells for anemia. There were no signs of bleeding. -The patient is planned for a cath in 48 hours, eliquis is being held. -he also had a VQ scan that was negative for PE. -At this points were waiting 48 hours sp last eliquis dose to do a cardiac cath -NSTEMI: Medical management per cardiology, awaiting records from his online marketing manager. Patient is planned for cath today or tomorrow -Acute on Chronic diastolic heart failure patient has dilated cardiomyopathy status post ICD: Medical management -ARF (acute renal failure) with tubular necrosis: Nephrology input appreciated, hydrating and avoiding nephrotoxins, resolved as patient may need cardiac cath -Anemia, microcytic s/p 1 unit prbc, no signs of bleeding: follow up FOBT, iron study, and ferritin, likely due to anemia of chronic disease -Atrial fibrillation with RVR and hypercoagulable states: Continue rate control medications, continue eliquis -Elevated D-Dimer: V/Q scan low probability with low suspicion Pneumonia ruled out, infiltrates were due to CHF Coagulopathy, iatrogenic due to eliquis DVT prophylaxis: Full anticoagulated full code Plan discussed with cardiology AND PATIENT WITH FAMILY History Interval history: Patient seen and examined today, Family at bedside, awaiting planned cardiac cath. Discussed with Nursing staff. No new adverse event reported to me from overnight. reports some knee pain but chronic on the right knee Review of systems Constitutional: No fevers, no malaise, no joint pains CVS: No chest pain, no orthopnea, no dyspnea on exertion, no pedal edema GI: No abdominal pain, no diarrhea, no vomiting, no constipation Respiratory: No shortness of breath, no wheezing, no coughing Hospitalist Physical - Physical exam Narrative exam: General.: Appears well, no distress, nontoxic HEENT: Moist mucous membranes, extraocular muscles intact, no lymphadenopathy Neck: supple Cardiac: S1-S2 heard Lungs: clear to auscultation bilaterally Abdomen: soft , nontender, nondistended, bowel sounds positive Extremities: no edema clubbing or cyanosis Skin: no rash or lesions. right chest wall pacemaker noted Neurologic: no gross focal deficits Psych: appropriate behavior, appropriate mood, corporative, judgment intact - Constitutional Vitals: Temp Pulse Resp BP Pulse Ox 98.1 F 93 H 22 120/65 97 02/14/18 09:16 02/14/18 09:16 02/14/18 09:16 02/14/18 09:16 02/14/18 09:16 General appearance: Absent: mild distress Results - Labs CBC & Chem 7: 02/14/18 04:45 02/14/18 04:45 Labs: Laboratory Last Values WBC 4.0 K/mm3 (4.5-11.0) L 02/14/18 04:45 RBC 3.93 M/mm3 (3.65-5.03) 02/14/18 04:45 Hgb 9.6 gm/dl (11.8-15.2) L 02/14/18 04:45 Hct 29.9 % (35.5-45.6) L 02/14/18 04:45 MCV 76 fl (84-94) L 02/14/18 04:45 MCH 24 pg (28-32) L 02/14/18 04:45 MCHC 32 % (32-34) 02/14/18 04:45 RDW 23.4 % (13.2-15.2) H 02/14/18 04:45 Plt Count 170 K/mm3 (140-440) 02/14/18 04:45 Lymph % (Auto) 24.4 % (13.4-35.0) 02/07/18 11:05 [place] % (Auto) 6.8 % (0.0-7.3) 02/07/18 11:05 Eos % (Auto) 0.9 % (0.0-4.3) 02/07/18 11:05 Baso % (Auto) 0.5 % (0.0-1.8) 02/07/18 11:05 Lymph # 1.3 K/mm3 (1.2-5.4) 02/07/18 11:05 [place] # 0.4 K/mm3 (0.0-0.8) 02/07/18 11:05 Eos # 0.0 K/mm3 (0.0-0.4) 02/07/18 11:05 Baso # 0.0 K/mm3 (0.0-0.1) 02/07/18 11:05 Seg Neutrophils % 67.4 % (40.0-70.0) 02/07/18 11:05 Seg Neutrophils # 3.7 K/mm3 (1.8-7.7) 02/07/18 11:05 PT 15.8 Sec. (12.2-14.9) H 02/14/18 04:45 INR 1.22 (0.87-1.13) H 02/14/18 04:45 APTT 32.2 Sec. (24.2-36.6) 02/08/18 10:43 D-Dimer 605.22 ng/mlDDU (0-234) H 02/07/18 13:09 Heparin Anti-Xa Level 2.00 U.I./ml (0.3-0.7) H 02/09/18 04:49 Sodium 138 mmol/L (137-145) 02/14/18 04:45 Potassium 3.9 mmol/L (3.6-5.0) 02/14/18 04:45 Chloride 101.7 mmol/L (98-107) 02/14/18 04:45 Carbon Dioxide 24 mmol/L (22-30) 02/14/18 04:45 Anion Gap 16 mmol/L 02/14/18 04:45 BUN 25 mg/dL (9-20) H 02/14/18 04:45 Creatinine 1.4 mg/dL (0.8-1.5) 02/14/18 04:45 Estimated GFR 49 ml/min 02/14/18 04:45 BUN/Creatinine Ratio 18 % 02/14/18 04:45 Glucose 87 mg/dL (75-100) 02/14/18 04:45 POC Glucose 71 (70-105) 02/14/18 06:41 Hemoglobin A1c 6.2 % (4-6) H 02/09/18 04:49 Calcium 8.4 mg/dL (8.4-10.2) 02/14/18 04:45 Magnesium 2.00 mg/dL (1.7-2.3) 02/09/18 04:49 Iron 34 ug/dL (49-181) L 02/08/18 17:51 TIBC 406 mcg/dL (250-450) 02/08/18 17:51 Ferritin 23.1 ng/mL (13.0-400.0) 02/08/18 17:51 Total Bilirubin 0.60 mg/dL (0.1-1.2) 02/07/18 11:07 AST 22 units/L (5-40) 02/07/18 11:07 ALT 7 units/L (7-56) 02/07/18 11:07 Alkaline Phosphatase 133 units/L (35-129) H 02/07/18 11:07 Total Creatine Kinase 384 units/L (55-170) H 02/08/18 17:47 CK-MB (CK-2) 15.1 ng/mL (0.0-4.0) H 02/08/18 17:47 CK-MB (CK-2) Rel Index 3.9 (0-4) 02/08/18 17:47 Troponin T 2.350 ng/mL (0.00-0.029) H* D 02/08/18 17:47 NT-Pro-B Natriuret Pep 7151 pg/mL (0-900) H 02/07/18 11:07 Total Protein 7.6 g/dL (6.3-8.2) 02/07/18 11:07 Albumin 3.5 g/dL (3.9-5) L 02/07/18 11:07 Albumin/Globulin Ratio 0.9 % 02/07/18 11:07 Triglycerides 79 mg/dL (2-149) 02/07/18 11:07 Cholesterol 99 mg/dL (50-199) 02/07/18 11:07 LDL Cholesterol Direct 61 mg/dL (50-130) 02/07/18 11:07 HDL Cholesterol 35 mg/dL (40-59) L 02/07/18 11:07 Cholesterol/HDL Ratio 2.82 % 02/07/18 11:07 TSH 2.090 mlU/mL (0.270-4.200) 02/09/18 04:49 Free T4 1.28 ng/dL (0.76-1.46) 02/08/18 06:44 Urine Color Straw (Yellow) 02/11/18 Unknown Urine Turbidity Clear (Clear) 02/11/18 Unknown Urine pH 5.0 (5.0-7.0) 02/11/18 Unknown Ur Specific [place] 1.005 (1.003-1.030) 02/11/18 Unknown Urine Protein <15 mg/dl mg/dL (Negative) 02/11/18 Unknown Urine Glucose (UA) Neg mg/dL (Negative) 02/11/18 Unknown Urine Ketones Neg mg/dL (Negative) 02/11/18 Unknown Urine Blood Mod (Negative) 02/11/18 Unknown Urine Nitrite Neg (Negative) 02/11/18 Unknown Urine Bilirubin Neg (Negative) 02/11/18 Unknown Urine Urobilinogen < 2.0 mg/dL (<2.0) 02/11/18 Unknown Ur Leukocyte Esterase Neg (Negative) 02/11/18 Unknown Urine WBC (Auto) < 1.0 /HPF (0.0-6.0) 02/11/18 Unknown Urine RBC (Auto) 24.0 /HPF (0.0-6.0) 02/11/18 Unknown Urine Eosinophils None seen (None Seen) 02/11/18 Unknown Blood Type A POSITIVE 02/07/18 12:03 Antibody Screen Negative 02/07/18 12:03 Crossmatch See Detail 02/07/18 12:03
[2018-02-14] MEDS ORDERED: HEPARIN 10,000 UNITS/10 ML ONE (12:15)
[2018-02-14] MEDS ORDERED: HEPARIN/NS 5000 UNIT/500ML(CATH LAB) 1,500 ML IR ONE (12:15)
[2018-02-14] MEDS ORDERED: NITROGLYCERIN SYRINGE 0 ML ONE (12:16)
[2018-02-14] MEDS ORDERED: VERSED ONE (12:16)
[2018-02-14] MEDS ORDERED: XYLOCAINE 2% INFILTRATI ONE (12:16)
[2018-02-14] MEDS ORDERED: CALAN ONE (12:16)
[2018-02-14] MEDS ORDERED: SUBLIMAZE ONE (12:16)
[2018-02-14] MEDS ORDERED: NACL 0.9% 500 ML 0 ML ONE (12:17)
[2018-02-14] MEDS: HALFPRIN EC PO SCH (12:46)
[2018-02-14] MEDS ORDERED: HALFPRIN EC PO ONE (12:48)
[2018-02-14] MEDS ORDERED: LOPRESSOR IV ONE (13:21)
[2018-02-14] MEDS ORDERED: NACL 0.9% 1000 ML 1,000 ML IV SCH (15:00)
--- NOTE | 2018-02-14 15:20 | Cardiac Catherization Report ---
REASON FOR PROCEDURE: The patient is a 77-year-old man with complex coronary history. History of hypertrophic cardiomyopathy, with ICD placement for nonsustained ventricular tachycardia, history of permanent atrial fibrillation, history of complex coronary artery disease with an unprotected bifurcation of the left main stent done at [facility]. He was admitted to this hospital with chest pain, shortness of breath, and rapid atrial fibrillation, and troponin levels were elevated, suggesting a non-ST elevation myocardial infarction. Further evaluation here with an echocardiogram also revealed a heavily calcified aortic valve with morphologic evidence of possible moderate to severe aortic stenosis. He was therefore recommended for a right and left heart catheterization for further assessment of his aortic valve disease and his coronary artery disease. PROCEDURE: 1. Right heart catheterization. 2. Left heart catheterization. 3. Selective left and right coronary angiography. The patient was prepped and draped in a sterile fashion after informed consent. The right femoral artery and vein were both entered using the Seldinger technique. A 6-[place] sheath was placed in the artery and a 7-[place] sheath in the vein. A [place]-Vinicio catheter was then advanced to the pulmonary artery position. Cardiac output was measured using the thermodilution method. We then advanced a #1 right Amplatz catheter into the left ventricle. Simultaneous right and left heart filling pressures were then measured. The [place]-Vinicio catheter was withdrawn through the right heart chambers. Right heart pressures were recorded. We then performed limited left ventricle angiography, following which the right Amplatz catheter was pulled back across the aortic valve, and transaortic gradient was recorded. Right coronary angiography was performed using the right Amplatz catheter. We then exchanged for a #4 left [place] catheter for left coronary angiography. The catheters were withdrawn, sheaths withdrawn, and hemostasis achieved using manual compression. The patient was returned to the postprocedure unit in stable condition. There were no complications. FINDINGS: HEMODYNAMICS: The mean right atrial pressure was 18-20. Right ventricular pressure was 60/20. Pulmonary artery pressure was 60/35. The mean pulmonary artery wedge pressure was 25. Left ventricular end-diastolic pressure was 25. Ascending aortic pressure was 132/70. On pullback across the aortic valve, there was less than 5 mm transaortic pressure gradient. Cardiac output was 3.55 liters per minute. CORONARY ANGIOGRAPHY: There was [id number] diffuse calcification of both left and right coronary arteries. The left main coronary artery contained mild diffuse atherosclerosis. A complex bifurcation stent was noted extending from the distal left main into the LAD and into the circumflex. The stented segments were patent, both in the left main, proximal LAD, and proximal circumflex. Another discrete stented segment was noted in the mid LAD, was also patent. Otherwise, diffuse mild to moderate atherosclerosis was noted in the rest of the LAD and circumflex systems. We also found severe diffuse atherosclerosis of small caliber diagonal branches of the LAD. We also note that the circumflex was a dominant vessel. The right coronary artery was small, heavily calcified, nondominant, and contained diffuse mild atherosclerosis. There was normal left ventricular systolic function, ejection fraction 60-65%. SEDATION TIME for this procedure was started hours, and hours. Total contrast used for the procedure was 50 mL. CONCLUSION: 1. Moderate to severe elevation of right and left heart filling pressures. 2. Moderately severe pulmonary hypertension. 3. No significant transaortic gradient, no significant aortic stenosis on invasive assessment. 4. Patent left main, LAD and circumflex artery stents. 5. Normal left ventricular systolic function, ejection fraction 60-65%. RECOMMENDATION: 1. Aggressive risk factor modification. 2. Medical therapy. JOB# [id number] KEELY/LORELEI
[2018-02-14] MEDS: K-DUR PO SCH (18:18)
[2018-02-14] MEDS: SODIUM BICARBONATE PO SCH ×2 (18:18→21:41)
[2018-02-14] MEDS: PROSCAR PO SCH (18:18)
[2018-02-14] MEDS: LASIX IV SCH (18:18)
[2018-02-14] MEDS: PLAVIX PO SCH (19:00)
[2018-02-14] MEDS: FLOMAX PO SCH (19:00)
[2018-02-14] MEDS: ELIQUIS PO SCH (21:41)
[2018-02-14] MEDS: SODIUM CHLORIDE FLUSH SYRINGE 10 ML IV SCH (22:31)
[2018-02-15] MEDS: LOPRESSOR PO SCH (05:59)
[2018-02-15 06:35] LABS: Hematocrit 28.9 % (35.5-45.6); Hemoglobin 9.3 gm/dl (11.8-15.2); Mean Corpuscular HGB Conc 32 % (32-34); Mean Corpuscular Volume 77 fl (84-94); Platelet Count 182 K/mm3 (140-440); Red Blood Count 3.78 M/mm3 (3.65-5.03)
[2018-02-15 06:39] LABS: Red Cell Distribution Width 23.3 % (13.2-15.2)
[2018-02-15 06:56] LABS: Calcium 8.3 mg/dL (8.4-10.2)
--- NOTE | 2018-02-15 08:42 | Progress Note ---
Assessment and Plan Impression: * MIRZA on chronic kidney disease --Renal u/s: right 9.1cm, left 10.1cm; scattered renal cysts; parenchymal disease --UA: +blood, negative protein * NSTEMI * Afib with RVR * Acute on chronic diastolic heart failure * PNA * Anemia * Microscopic hematuria Plan: * Renal function is stable - SCr 1.3mg/dL today * Continue to hold ACEi for now * Continue PO sodium bicarbonate * Status post LHC/RHC on 02/14/2018. Findings noted * Strict I/O * Avoid potential nephrotoxic agents * No evidence of contrast nephropathy at this point . * Continue gentle hydration * Check a uric acid level Subjective Date of service: 02/15/18 Principal diagnosis: mirza on ckd Interval history: Patient is status post cardiac cath yesterday. Comfortable this morning. Denies any shortness of breath or chest pain. Complains of pain in his left elbow Objective - Vital Signs Vital signs: Vital Signs - 12hr 02/14/18 02/14/18 02/15/18 22:43 23:40 05:11 Temperature 97.0 F L 98.0 F Pulse Rate 102 H 104 H Pulse Rate [ 92 H Apical] Respiratory 20 18 Rate Blood Pressure 114/61 101/57 O2 Sat by Pulse 99 98 Oximetry 02/15/18 02/15/18 07:44 07:45 Temperature 98.6 F Pulse Rate 98 H Pulse Rate [ Apical] Respiratory 18 Rate Blood Pressure 123/56 O2 Sat by Pulse 98 Oximetry - General Appearance General appearance: well-developed, well-nourished, appears stated age EENT: PERRL, mucous membranes moist Neck: no JVD, no thyromegaly, no carotid bruit, supple Respiratory: Present: Clear to Ascultation Cardiology: irregularly irregular, S1S2, no murmurs Gastrointestinal: normal, normoactive bowel sounds Integumentary: no rash, warm and dry, other (swelling and erythema noted in his left elbow) - Lab 02/15/18 06:07 02/15/18 06:07 Most recent lab results Calcium 8.3 mg/dL (8.4-10.2) L 02/15/18 06:07 Magnesium 2.00 mg/dL (1.7-2.3) 02/09/18 04:49 Medications & Allergies - Medications Allergies/Adverse Reactions: Allergies No Known Allergies Allergy (Verified 02/07/18 10:58) Home Medications: Home Medications Medication Instructions Recorded Confirmed Last Taken Type Aspirin [Adult Aspirin] 81 mg PO DAILY 02/07/18 02/07/18 Unknown History Atorvastatin Calcium [Lipitor] 40 mg PO HS 02/07/18 02/07/18 Unknown History Finasteride [Proscar] 5 mg PO QAM 02/07/18 02/07/18 Unknown History Furosemide [Lasix TAB] 40 mg PO QDAY 02/07/18 02/07/18 Unknown History Metoprolol Succinate [Toprol Xl] 100 mg PO BID 02/07/18 02/07/18 Unknown History Nitroglycerin [Nitrostat] 0.4 mg SL Q5M PRN 02/07/18 02/07/18 Unknown History Potassium Chloride [Klor-Con 10] 10 meq PO DAILY 02/07/18 02/07/18 Unknown History Tamsulosin HCl [Flomax] 0.4 mg PO QPM 02/07/18 02/07/18 Unknown History Active Medications: Generic Name Dose Route Start Last Admin Trade Name Freq PRN Reason Stop Dose Admin Acetaminophen 650 mg 02/07/18 13:10 02/13/18 04:48 Tylenol PO 650 mg Q4H PRN Administration Pain MILD(1-3)/Fever >100.5/COLÓN Albuterol 2.5 mg 02/07/18 13:10 Proventil IH Q4HRT PRN Shortness Of Breath Apixaban 5 mg 02/14/18 22:00 02/14/18 21:41 Eliquis PO 5 mg Q12HR COLBY Administration Protocol Atorvastatin Calcium 40 mg 02/07/18 22:00 02/14/18 21:41 Lipitor PO 40 mg HS COLBY Administration Clopidogrel Bisulfate 75 mg 02/14/18 15:30 02/14/18 19:00 Plavix PO 75 mg QDAY COLBY Administration Dextrose 50 ml 02/09/18 15:57 D50w (25gm) Syringe IV PRN PRN Hypoglycemia Finasteride 5 mg 02/08/18 10:00 02/14/18 18:18 Proscar PO 5 mg QAM COLBY Administration Furosemide 40 mg 02/08/18 17:00 02/14/18 18:18 Lasix IV 40 mg QDAY COLBY Administration Sodium Chloride 1,000 mls @ 75 mls/hr 02/14/18 15:00 02/14/18 21:42 Nacl 0.9% 1000 Ml IV 02/15/18 08:59 75 mls/hr DIRECT COLBY Administration Insulin Human Lispro 0 unit 02/09/18 16:30 02/14/18 22:32 Humalog SUB-Q Not Given ACHS [facility] Protocol Metoprolol Tartrate 50 mg 02/14/18 15:00 02/15/18 05:59 Lopressor PO Not Given Q8HR [facility] Nitroglycerin 0.4 mg 02/07/18 13:11 Nitrostat SL Q5M PRN Chest Pain Ondansetron HCl 4 mg 02/07/18 13:10 Zofran IV Q8H PRN Nausea And Vomiting Potassium Chloride 10 meq 02/08/18 10:00 02/14/18 18:18 K-Dur PO 10 meq QDAY COLBY Administration Sodium Bicarbonate 1,300 mg 02/11/18 13:00 02/14/18 21:41 Sodium Bicarbonate PO 1,300 mg BID COLBY Administration Sodium Chloride 10 ml 02/07/18 22:00 02/14/18 22:31 Sodium Chloride Flush Syringe 10 Ml IV Not Given BID COLBY Sodium Chloride 10 ml 02/07/18 13:10 Sodium Chloride Flush Syringe 10 Ml IV PRN PRN LINE FLUSH Tamsulosin HCl 0.4 mg 02/07/18 18:00 02/14/18 19:00 Flomax PO 0.4 mg QPM COLBY Administration
--- NOTE | 2018-02-15 10:27 | Discharge Summary ---
Providers - Providers Date of Admission: 02/07/18 13:10 Attending physician: JAIRO ESPOSITO MD 02/14/18 14:15 Consult to Cardiac Rehabilitation [CONS] Routine Reason For Exam: Cardiac Rehab Evaluation 02/07/18 13:11 Consult to Physician [CONS] Routine Comment: Consulting Provider: JUANJO PÉREZ Physician Instructions: Reason For Exam: acs/chf 02/09/18 15:58 Consult to Physician [CONS] Routine Comment: Consulting Provider: TEJ BOB Physician Instructions: Reason For Exam: ARF, ?diuretics vs chf related Primary care physician: STAFF THERAPIST Hospitalization Reason for admission: nstemi Condition: Stable Hospital course: Patient is a 77 you Liberian speaking man with a history of HTN, HLD, BPH, CHF, Afib with PPM or AICD (Nancy Theodore) and CAD S/P Stent placement who presented to [facility] ED with CP and SOB. He was found to be in afib with RVR, most likely because he ran out of his Metoprolol. He was treated with rate control medications after which his heart rate improved. He has been having chest pain and had an elevation in troponins. He was seen by cardiology, cardiology was leading to get his records from his player manager up in [facility]. Dr. Pérez spoke to his player manager early this morning and patient has extensive history and will require cardiac cath. Nephrology is comanaging to minimize any renal damage from contrast with the cardiac cath. -The patient received 1 unit of packed red blood cells for anemia. There were no signs of bleeding. -The patient is planned for a cath in 48 hours, eliquis is being held. -he also had a VQ scan that was negative for PE. -Right and left heart catheterization demonstrated moderate to severe pulmonary hypertension, normal left ventricular systolic function, ejection fraction 60- 65%, no significant aortic stenosis, and patent left main, LAD and circumflex artery stents. Echocardiogram reveals well-preserved left ventricular systolic function, but is asymmetric septal hypertrophy. There is also a moderate degree of mitral valve prolapse, and moderate to severe calcific aortic stenosis. There is marked dilatation of both left and right atria, consistent with a likely long-standing and probably permanent atrial fibrillation. Recommendations: Medical therapy for coronary artery disease. Oral anticoagulation and rate controlling agents for permanent atrial fibrillation. Stable cardiac christianson for discharge. Patient advised to follow up with his primary player manager, Dr. Jame Houston in [place]. -NSTEMI: -Acute on Chronic diastolic heart failure patient has dilated cardiomyopathy status post ICD: -ARF (acute renal failure) with tubular necrosis: -Anemia, microcytic s/p 1 unit prbc, -Atrial fibrillation with RVR and hypercoagulable states: -Elevated D-Dimer Pneumonia ruled out, infiltrates were due to CHF Coagulopathy, iatrogenic due to eliquis Presence of AICD ([employer]) Hx of CAD Disposition: DC/TX- HOME UNDER HOME HLTH Time spent for discharge: 35 MINS Core Measure Documentation - Palliative Care Palliative Care/ Comfort Measures: Not Applicable - Core Measures Any of the following diagnoses?: heart failure - Heart Failure Discharge Requirements SUMANTH/ARB for LVSD if EF <40%: No Reason for no SUMANTH/ARB: Renal impairment Beta alfonso at discharge: Yes Exam - Physical Exam Narrative exam: General.: Appears well, no distress, nontoxic HEENT: Moist mucous membranes, extraocular muscles intact, no lymphadenopathy Neck: supple Cardiac: S1-S2 heard Lungs: clear to auscultation bilaterally Abdomen: soft , nontender, nondistended, bowel sounds positive Extremities: no edema clubbing or cyanosis Skin: no rash or lesions. right chest wall pacemaker noted Neurologic: no gross focal deficits Psych: appropriate behavior, appropriate mood, corporative, judgment intact - Constitutional Vitals: Temp Pulse Resp BP Pulse Ox 98.6 F 98 H 18 123/56 98 02/15/18 07:44 02/15/18 07:45 02/15/18 07:45 02/15/18 07:45 02/15/18 07:45 Plan Activity: advance as tolerated, fall precautions Diet: low fat, low salt Special Instructions: record daily weights, record daily BP diary Follow up with: PRIMARY CAREMD [Primary Care Provider] - 7 Days JUANJO PÉREZ MD [Staff Physician] - 7 Days LUIS E SMITH MD [Staff Physician] - 7 Days Forms: CardCat PCI D/C Instructions Prescriptions: Apixaban [Eliquis] 5 mg PO Q12HR #60 tablet Clopidogrel [Plavix] 75 mg PO QDAY #30 tablet ISOSORBIDE MONOnitrate [Imdur ER] 30 mg PO DAILY #30 tab.er.24h Potassium Chloride [Klor-Con 10] 10 meq PO DAILY #30 tablet.er
[2018-02-15] MEDS: HumaLOG SUB-Q SCH ×2 (10:42→14:55)
[2018-02-15] MEDS: PLAVIX PO SCH (11:04)
[2018-02-15] MEDS: K-DUR PO SCH (11:04)
[2018-02-15] MEDS: ELIQUIS PO SCH (11:04)
[2018-02-15] MEDS: LASIX IV SCH (11:04)
[2018-02-15] MEDS: SODIUM BICARBONATE PO SCH (11:04)
[2018-02-15] MEDS: PROSCAR PO SCH (11:04)
[2018-02-15] MEDS: SODIUM CHLORIDE FLUSH SYRINGE 10 ML IV SCH ×2 (11:05→11:06)
--- NOTE | 2018-02-15 11:11 | Progress Note ---
Addendum entered and electronically signed by JUANJO PÉREZ MD 02/15/18 11:14: The patient looks and feels better, no cardiac complaints, right groin cath site well healed. He is stable for cardiac discharge. I have requested that he brings his home medications to the hospital today, for a proper medication reconciliation in anticipation of his discharge home later today. Original Note: Assessment and Plan Permanent atrial fibrillation rate controlled on eliquis as an outpatient NSTEMI Acute renal failure Anemia s/p blood transfusion Decompensated heart failure, diastolic Hx of hypertrophy cardiomyopathy Presence of AICD ([employer]tr[employer]) Hx of CAD Echocardiogram reveals well-preserved left ventricular systolic function, but is asymmetric septal hypertrophy. There is also a moderate degree of mitral valve prolapse, and moderate to severe calcific aortic stenosis. There is marked dilatation of both left and right atria, consistent with a likely long-standing and probably permanent atrial fibrillation. Right and left heart catheterization demonstrated moderate to severe pulmonary hypertension, normal left ventricular systolic function, ejection fraction 60- 65%, no significant aortic stenosis, and patent left main, LAD and circumflex artery stents. Recommendations: Medical therapy for coronary artery disease. Oral anticoagulation and rate controlling agents for permanent atrial fibrillation. Stable cardiac christianson for discharge. Patient advised to follow up with his primary visual designer, Dr. Jame Houston in [place]. Subjective Date of service: 02/15/18 Principal diagnosis: raya on ckd Interval history: Patient is resting in bed comfortably. Family members at bedside. Objective Vital Signs Temp Pulse Pulse Resp BP BP Pulse Ox 02/15/18 07:45 98 H 18 123/56 98 02/15/18 07:44 98.6 F 02/15/18 05:11 98.0 F 104 H 18 101/57 98 02/14/18 23:40 97.0 F L 102 H 20 114/61 99 02/14/18 22:43 92 H 02/14/18 20:32 56 L 02/14/18 20:14 98.0 F 80 18 98/57 98 02/14/18 17:00 98.2 F 56 L 16 189/82 97 02/14/18 15:22 89 93/63 99 - Physical Examination General: No Apparent Distress HEENT: Positive: PERRL Neck: Positive: trachea midline Cardiac: Positive: irregularly irregular Lungs: Positive: Decreased Breath Sounds Neuro: Positive: Grossly Intact Abdomen: Positive: Soft Incision: Cardiac Cath Site (right groin) Extremities: Absent: edema - Labs and Meds CBC 02/15/18 Range/Units 06:07 WBC 4.5 (4.5-11.0) K/mm3 RBC 3.78 (3.65-5.03) M/mm3 Hgb 9.3 L (11.8-15.2) gm/dl Hct 28.9 L (35.5-45.6) % Plt Count 182 (140-440) K/mm3 Comprehensive Metabolic Panel 02/15/18 Range/Units 06:07 Sodium 135 L (137-145) mmol/L Potassium 3.7 (3.6-5.0) mmol/L Chloride 99.9 (98-107) mmol/L Carbon Dioxide 24 (22-30) mmol/L BUN 22 H (9-20) mg/dL Creatinine 1.3 (0.8-1.5) mg/dL Glucose 85 (75-100) mg/dL Calcium 8.3 L (8.4-10.2) mg/dL
[2018-02-15 11:27] VITALS: BP 120/54
== END 2018-02-15 15:20 | disposition home health service (06) | DRG 280 ==
LOC: ED 10:29 → 4A 13:10
PROVIDERS: ADMIT Internal Medicine; ATTEND Internal Medicine
PROC: 30233N1 Transfusion of Nonautologous Red Blood Cells into Peripheral Vein, Percutaneous Approach (ICD-10-PCS; 2018-02-07)
PROC: 4A023N8 Measurement of Cardiac Sampling and Pressure, Bilateral, Percutaneous Approach (ICD-10-PCS; principal; 2018-02-14)
PROC: B2111ZZ Fluoroscopy of Multiple Coronary Arteries using Low Osmolar Contrast (ICD-10-PCS; 2018-02-14)
PROC: B2151ZZ Fluoroscopy of Left Heart using Low Osmolar Contrast (ICD-10-PCS; 2018-02-14)
DX: I21.4 Non-ST elevation (NSTEMI) myocardial infarction (principal); N17.0 Acute kidney failure with tubular necrosis; I50.43 Acute on chronic combined systolic (congestive) and diastolic (congestive) heart failure; I42.2 Other hypertrophic cardiomyopathy; I42.0 Dilated cardiomyopathy; D68.59 Other primary thrombophilia; I13.0 Hypertensive heart and chronic kidney disease with heart failure and stage 1 through stage 4 chronic kidney disease, or unspecified chronic kidney disease; I48.91 Unspecified atrial fibrillation; I25.10 Atherosclerotic heart disease of native coronary artery without angina pectoris; I27.20 Pulmonary hypertension, unspecified; N40.0 Benign prostatic hyperplasia without lower urinary tract symptoms; D50.9 Iron deficiency anemia, unspecified; T50.995A Adverse effect of other drugs, medicaments and biological substances, initial encounter; R31.29 Other microscopic hematuria; I34.1 Nonrheumatic mitral (valve) prolapse; N18.9 Chronic kidney disease, unspecified; R73.9 Hyperglycemia, unspecified; Z95.810 Presence of automatic (implantable) cardiac defibrillator; Y92.89 Other specified places as the place of occurrence of the external cause; Z95.5 Presence of coronary angioplasty implant and graft; Z79.82 Long term (current) use of aspirin; Z79.899 Other long term (current) drug therapy; Z82.49 Family history of ischemic heart disease and other diseases of the circulatory system
CPT/HCPCS: 36415; 36430; 71045; 76770; 78582; 80048; 80053; 80061; 81001; 82550; 82553; 82728; 82962; 83036; 83550; 83735; 83880; 84439; 84443; 84484; 84550; 85014; 85018; 85025; 85027; 85049; 85379; 85520; 85610; 85730; 86850; 86900; 86901; 86920; 89050; 93005; 93010; 93306; 93460; G0378; A9270-GY; A9540; A9558; C1894; J0456; J0696; J1644; J1940; J2250; J3010; J7030; J7040; J7050; P9016; Q9967